=== PATIENT | male | born 1940 | race Caucasian/White ===

== ENCOUNTER 2018-05-08 13:31 | Inpatient (IN) | payer MEDICARE, OTHER ==
--- NOTE | 2018-05-08 14:13 | ED PDOC ---
HPI: Male Pain Time Seen by Provider: 05/08/18 14:12 Chief Complaint (Nursing): Male Genitourinary Chief Complaint (Provider): dysuria/chills History Per: Patient (77 y/o male h/o DM here with dysuria/urinary frequency/incontinence this week associated with chills. States he was seen by urology last week without improvement. No vomiting/diarrhea.) Past Medical History Reviewed: Historical Data, Nursing Documentation, Vital Signs Vital Signs: Last Vital Signs Temp 99.8 F H 05/08/18 13:48 Pulse 103 H 05/08/18 13:48 Resp 20 05/08/18 13:48 BP 173/75 H 05/08/18 13:48 Pulse Ox 97 05/08/18 13:48 - Medical History PMH: HTN - Family History Family History: States: No Known Family Hx - Home Medications Home Medications: Ambulatory Orders Medication Instructions Recorded Glimepiride [amaRYL] 2 mg PO DAILY 05/08/18 Nebivolol [Bystolic] 5 mg PO DAILY 05/08/18 Rosuvastatin Calcium [Crestor] 5 mg PO DAILY 05/08/18 Sitagliptin Phos/Metformin HCl 1 mg PO DAILY 05/08/18 [Janumet 50-500 mg Tablet] Tamsulosin [Flomax] 0.4 mg PO DAILY 05/08/18 - Allergies Allergies/Adverse Reactions: Allergies Allergy/AdvReac Type Severity Reaction Status Date / Time No Known Allergies Allergy Verified 05/08/18 13:46 Review of Systems ROS Statement: Except As Marked, All Systems Reviewed And Found Negative Physical Exam - Reviewed Nursing Documentation Reviewed: Yes Vital Signs Reviewed: Yes - Physical Exam Appears: Positive for: Well, Non-toxic, No Acute Distress Head Exam: Positive for: ATRAUMATIC, NORMAL INSPECTION, NORMOCEPHALIC Skin: Positive for: Normal Color, Warm, DRY Eye Exam: Positive for: EOMI, Normal appearance, PERRL ENT: Positive for: Normal ENT Inspection Neck: Positive for: Normal, Painless ROM Cardiovascular/Chest: Positive for: Regular Rate, Rhythm Respiratory: Positive for: CNT, Normal Breath Sounds Gastrointestinal/Abdominal: Positive for: Normal Exam, Soft Back: Positive for: Normal Inspection Extremity: Positive for: Normal ROM Neurologic/Psych: Positive for: Alert, Oriented - Laboratory Results Result Diagrams: 05/08/18 14:48 05/08/18 15:40 - ECG O2 Sat by Pulse Oximetry: 97 - Progress ED Course And Treament: cxr: nad rocephin 1 gm iv x 1 dose NS 1 liter wide open lactate 3.8 rocephin 1 gm iv ns 2nd liter ordered. influenza a/b negative d/w Dr. Vick. Patient requests urology evaluation inpatient. repeat lactate 2.1 Disposition - Clinical Impression Clinical Impression: Urinary tract infection, Sepsis - Patient ED Disposition Is Patient to be Admitted: Yes - Disposition Disposition Time: 17:05 Condition: FAIR - Pt Status Changed To: Hospital Disposition Of: Observation
[2018-05-08 14:51] LABS: VENOUS BLOOD GAS BASE EXCESS -1.5 mmol/L (0.0-2.0); VENOUS BLOOD GAS PCO2 37 mmHg (40-60); VENOUS BLOOD GAS PO2 32 mm/Hg (30-55)
[2018-05-08 14:55] LABS: BASO # 0.1 K/uL (0.0-0.2); BASO % 0.6 % (0.0-2.0); EOS # 0.1 K/uL (0.0-0.7); EOS % 0.5 % (0.0-4.0); LYMPH # 1.8 K/uL (1.0-4.3); LYMPH % 9.7 % (20.0-40.0); MEAN CELL VOLUME 88.6 fl (80.0-94.0); MEAN CORPUSCULAR HEMOGLOBIN 29.3 pg (27.0-31.0); MEAN PLATELET VOLUME 8.7 fl (7.2-11.7); MONO # 1.4 K/uL (0.0-0.8); MONO % 7.6 % (0.0-10.0); NEUT # 15.2 K/uL (1.8-7.0); NEUT % 81.6 % (50.0-75.0); PLATELET COUNT 175 K/uL (130-400); RBC 4.45 Mil/uL (4.40-5.90); RED CELL DISTRIBUTION WIDTH 14.4 % (11.5-14.5); WHITE BLOOD COUNT 18.6 K/uL (4.8-10.8)
[2018-05-08 15:01] LABS: SQUAMOUS EPITHIAL < 1 /hpf (0-5); URINE BACTERIA OCC (<OCC); URINE BILIRUBIN NEGATIVE (NEGATIVE); URINE BLOOD MODERATE (NEGATIVE); URINE CLARITY SLIGHTY-CLOUDY (Clear); URINE COLOR YELLOW (YELLOW); URINE GLUCOSE (UA) NEG (Normal); URINE LEUKOCYTE ESTERASE MOD Leu/uL (Negative); URINE PROTEIN NEGATIVE (NEGATIVE); URINE UROBILINOGEN 0.2-1.0 mg/dL (0.2-1.0)
[2018-05-08] MEDS ORDERED: Sodium Chloride 0.9% 1,000 ML IV STA ×2 (15:07→16:23)
[2018-05-08] MEDS ORDERED: cefTRIAXone (Rocephin) 1 gm Inj IVPB ONE (15:26)
[2018-05-08] MEDS ORDERED: cefTRIAXone (Rocephin) 1 gm Inj ONE (15:38)
--- NOTE | 2018-05-08 16:09 | RAD ---
Date of service: 05/08/2018 HISTORY: Routine. COMPARISON: No prior. FINDINGS: LUNGS: Poor inspiration with low lung volumes, crowded bronchovascular markings and minor bibasilar atelectasis. PLEURA: No significant pleural effusion identified, no pneumothorax apparent. CARDIOVASCULAR: . Aortic atherosclerotic calcification present. Normal cardiac size. No pulmonary vascular congestion. OSSEOUS STRUCTURES: Mild multilevel degenerative spondylosis of the thoracic spine. VISUALIZED UPPER ABDOMEN: Normal. OTHER FINDINGS: None. IMPRESSION: Poor inspiration with low lung volumes, crowded bronchovascular markings and minor bibasilar atelectasis.
[2018-05-08 16:16] LABS: ALB/GLOB RATIO 1.2 (1.0-2.1); ALBUMIN 4.1 g/dL (3.5-5.0); ALT/SGPT 16 U/L (21-72); AST/SGOT 19 U/L (17-59); BLOOD UREA NITROGEN 19 mg/dl (9-20); CALCIUM 9.3 mg/dL (8.4-10.2); GFR NON-AFRICAN AMERICAN > 60
[2018-05-08 16:54] LABS: LYMPHOCYTE 14 % (20-50); MONOCYTE 4 % (0-10); NEUTROPHIL 82 % (42-75); TOTAL CELLS COUNTED 100
[2018-05-08 16:55] LABS: ANISOCYTOSIS SLIGHT; OVALOCYTES SLIGHT; PLATELET ESTIMATE NORMAL (NORMAL); POIKILOCYTOSIS SLIGHT
--- NOTE | 2018-05-08 17:30 | CP.PCM.HP ---
<Helena Sheppard - Last Filed: 05/08/18 19:09> History of Present Illness - History of Present Illness History of Present Illness: CC: chill and burning with urination HPI: 77 YO Male with PMHx of HTN, HLD, NIDDM, and BPH presents to [facility] ED for pain with urination and chills. Pt states that for the past two months pt has had burning pain with urination, intense, and it has worsened over time. For the past 24 hrs he has had urinary frequency, urination every 2hrs last night and chills throughout the night and day. Pt was seen by his MD a few weeks ago was given a new medication which did not help his symptoms (Flomax). Denies fevers, flank pain, n/v/d/c. PMD: Qamar Dobson MD PMHx: HTN, HLD, NIDDM, and BPH SurgHx: Denies FHx: hx of Alzehimers in mother and liver problem in father (both passes away), HTN in family SHx: denies ETOH, smoking and illicit drug use Allergies: NKDA Meds: see med list Present on Admission - Present on Admission Any Indicators Present on Admission: No Review of Systems - Constitutional Constitutional: Chills. absent: Fever, Night Sweats - Cardiovascular Cardiovascular: absent: Chest Pain, Dyspnea, Palpitations - Respiratory Respiratory: absent: Cough, Dyspnea - Gastrointestinal Gastrointestinal: absent: Abdominal Pain, Nausea, Vomiting - Genitourinary Genitourinary: Dysuria, Urinary Frequency Past Patient History - Past Social History Alcohol: None Drugs: Denies Home Situation {Lives}: With Family - CARDIAC Hx Hypertension: Yes - ENDOCRINE/METABOLIC Hx Diabetes Mellitus Type 2: Yes - GENITOURINARY/GYNECOLOGICAL Hx Prostate Problems: Yes - PSYCHIATRIC Hx Substance Use: No Meds Allergies/Adverse Reactions: Allergies Allergy/AdvReac Type Severity Reaction Status Date / Time No Known Allergies Allergy Verified 05/08/18 13:46 Physical Exam - Constitutional Appears: No Acute Distress - Head Exam Head Exam: NORMAL INSPECTION - Eye Exam Eye Exam: EOMI, Normal appearance - ENT Exam ENT Exam: Mucous Membranes Moist - Respiratory Exam Respiratory Exam: Clear to Auscultation Bilateral, NORMAL BREATHING PATTERN. absent: Wheezes - Cardiovascular Exam Cardiovascular Exam: REGULAR RHYTHM, +S1, +S2 - GI/Abdominal Exam GI & Abdominal Exam: Normal Bowel Sounds, Soft. absent: Distended, Guarding, Tenderness - Extremities Exam Extremities exam: Positive for: normal inspection. Negative for: calf tenderness, pedal edema - Back Exam Back exam: NORMAL INSPECTION. absent: CVA tenderness (L), CVA tenderness (R) - Neurological Exam Neurological exam: Alert, Oriented x3 - Psychiatric Exam Psychiatric exam: Normal Mood - Skin Skin Exam: Normal Color Results - Vital Signs Recent Vital Signs: Last Vital Signs Temp 99.8 F H 05/08/18 13:48 Pulse 103 H 05/08/18 13:48 Resp 20 05/08/18 13:48 BP 173/75 H 05/08/18 13:48 Pulse Ox 97 05/08/18 17:02 - Labs Result Diagrams: 05/08/18 14:48 05/08/18 15:40 Labs: Laboratory Results - last 24 hr 05/08/18 05/08/18 05/08/18 14:27 14:48 15:30 WBC 18.6 H RBC 4.45 Hgb 13.0 Hct 39.5 MCV 88.6 MCH 29.3 MCHC 33.0 RDW 14.4 Plt Count 175 MPV 8.7 Neut % (Auto) 81.6 H Lymph % (Auto) 9.7 L [place] % (Auto) 7.6 Eos % (Auto) 0.5 Baso % (Auto) 0.6 Neut # (Auto) 15.2 H Lymph # (Auto) 1.8 [place] # (Auto) 1.4 H Eos # (Auto) 0.1 Baso # (Auto) 0.1 Neutrophils % (Manual) 82 H Lymphocytes % (Manual) 14 L Monocytes % (Manual) 4 Platelet Estimate Normal Poikilocytosis (manual Slight Anisocytosis (manual) Slight Ovalocytes Slight pO2 32 VBG pH 7.40 VBG pCO2 37 L VBG HCO3 22.9 VBG Total CO2 24.0 VBG O2 Sat (Calc) 68.2 H VBG Base Excess -1.5 L VBG Potassium 4.0 Sodium 136.0 Chloride 103.0 Glucose 172 H Lactate 3.8 H FiO2 24.0 Potassium Carbon Dioxide Anion Gap BUN Creatinine Est GFR ( Amer) Est GFR (Non-Af Amer) Random Glucose Calcium Total Bilirubin AST ALT Alkaline Phosphatase Total Protein Albumin Globulin Albumin/Globulin Ratio Venous Blood Potassium 4.0 Urine Color Yellow Urine Clarity Slighty-cloudy Urine pH 5.0 Ur Specific [place] 1.017 Urine Protein Negative Urine Glucose (UA) Neg Urine Ketones Negative Urine Blood Moderate Urine Nitrate Negative Urine Bilirubin Negative Urine Urobilinogen 0.2-1.0 Ur Leukocyte Esterase Mod Urine RBC (Auto) 13 H Urine Microscopic WBC 39 H Ur Squamous Epith Cells < 1 Urine Bacteria Occ H Influenza Typ A,B (EIA) 05/08/18 05/08/18 15:40 16:38 WBC RBC Hgb Hct MCV MCH MCHC RDW Plt Count MPV Neut % (Auto) Lymph % (Auto) [place] % (Auto) Eos % (Auto) Baso % (Auto) Neut # (Auto) Lymph # (Auto) [place] # (Auto) Eos # (Auto) Baso # (Auto) Neutrophils % (Manual) Lymphocytes % (Manual) Monocytes % (Manual) Platelet Estimate Poikilocytosis (manual Anisocytosis (manual) Ovalocytes pO2 VBG pH VBG pCO2 VBG HCO3 VBG Total CO2 VBG O2 Sat (Calc) VBG Base Excess VBG Potassium Sodium 139 Chloride 104 Glucose Lactate FiO2 Potassium 4.1 Carbon Dioxide 23 Anion Gap 16 BUN 19 Creatinine 1.0 Est GFR ( Amer) > 60 Est GFR (Non-Af Amer) > 60 Random Glucose 148 H Calcium 9.3 Total Bilirubin 0.9 AST 19 ALT 16 L Alkaline Phosphatase 58 Total Protein 7.4 Albumin 4.1 Globulin 3.3 Albumin/Globulin Ratio 1.2 Venous Blood Potassium Urine Color Urine Clarity Urine pH Ur Specific [place] Urine Protein Urine Glucose (UA) Urine Ketones Urine Blood Urine Nitrate Urine Bilirubin Urine Urobilinogen Ur Leukocyte Esterase Urine RBC (Auto) Urine Microscopic WBC Ur Squamous Epith Cells Urine Bacteria Influenza Typ A,B (EIA) Negative for flu a/b Assessment & Plan - Assessment and Plan (Free Text) Assessment: Assessment/Plan: 77 YO Male with PMHx of HTN, HLD, NIDDM, and BPH is admitted for UTI and sepsis. Sepsis -tachycardia, low grade fever, leukocytosis with UTI likely source -Leukocytosis with neutrophilia -lactatic acidosis, improving initially 3.8--> 2.1 -CXR neg for pneumonia, atelectasis noted -Ucx, and bcx pending -IV abx, c/w rocephin -s/o 2L in ED -c/w IV fluids -Tylenol for fever prn UTI -leukocytosis with UA + for leukes and RBC -ucx pending -c/w rocephin and IVF -Tylenol for fever prn -AZO for dysuria HTN -chronic -c/w home meds NIDDM -chronic -c/w home meds, hold metformin given lactic acidosis, c/w januvia -low dose insulin and hypoglycemia protocol BPH -chronic -c/w flomax -urology consulted, follow up recs Dvt Proplx -Lovenox SC <Anthony Vick D - Last Filed: 05/09/18 09:39> Results - Vital Signs Recent Vital Signs: Last Vital Signs Temp 98.5 F 05/09/18 08:51 Pulse 73 05/09/18 08:51 Resp 18 05/09/18 08:51 BP 123/64 05/09/18 08:51 Pulse Ox 99 05/09/18 08:51 - Labs Result Diagrams: 05/09/18 04:30 05/09/18 04:30 Labs: Laboratory Results - last 24 hr 05/08/18 05/08/18 05/08/18 14:27 14:48 15:30 WBC 18.6 H RBC 4.45 Hgb 13.0 Hct 39.5 MCV 88.6 MCH 29.3 MCHC 33.0 RDW 14.4 Plt Count 175 MPV 8.7 Neut % (Auto) 81.6 H Lymph % (Auto) 9.7 L [place] % (Auto) 7.6 Eos % (Auto) 0.5 Baso % (Auto) 0.6 Neut # (Auto) 15.2 H Lymph # (Auto) 1.8 [place] # (Auto) 1.4 H Eos # (Auto) 0.1 Baso # (Auto) 0.1 Neutrophils % (Manual) 82 H Lymphocytes % (Manual) 14 L Monocytes % (Manual) 4 Platelet Estimate Normal Poikilocytosis (manual Slight Anisocytosis (manual) Slight Ovalocytes Slight pO2 32 VBG pH 7.40 VBG pCO2 37 L VBG HCO3 22.9 VBG Total CO2 24.0 VBG O2 Sat (Calc) 68.2 H VBG Base Excess -1.5 L VBG Potassium 4.0 Sodium 136.0 Chloride 103.0 Glucose 172 H Lactate 3.8 H FiO2 24.0 Crit Value Called To Crit Value Called By Crit Value Read Back Blood Gas Notified Time Potassium Carbon Dioxide Anion Gap BUN Creatinine Est GFR ( Amer) Est GFR (Non-Af Amer) POC Glucose (mg/dL) Random Glucose Lactic Acid Calcium Total Bilirubin AST ALT Alkaline Phosphatase Total Protein Albumin Globulin Albumin/Globulin Ratio Venous Blood Potassium 4.0 Urine Color Yellow Urine Clarity Slighty-cloudy Urine pH 5.0 Ur Specific [place] 1.017 Urine Protein Negative Urine Glucose (UA) Neg Urine Ketones Negative Urine Blood Moderate Urine Nitrate Negative Urine Bilirubin Negative Urine Urobilinogen 0.2-1.0 Ur Leukocyte Esterase Mod Urine RBC (Auto) 13 H Urine Microscopic WBC 39 H Ur Squamous Epith Cells < 1 Urine Bacteria Occ H Influenza Typ A,B (EIA) 05/08/18 05/08/18 05/08/18 15:40 16:38 17:26 WBC RBC Hgb Hct MCV MCH MCHC RDW Plt Count MPV Neut % (Auto) Lymph % (Auto) [place] % (Auto) Eos % (Auto) Baso % (Auto) Neut # (Auto) Lymph # (Auto) [place] # (Auto) Eos # (Auto) Baso # (Auto) Neutrophils % (Manual) Lymphocytes % (Manual) Monocytes % (Manual) Platelet Estimate Poikilocytosis (manual Anisocytosis (manual) Ovalocytes pO2 15 L VBG pH 7.38 VBG pCO2 45 VBG HCO3 23.6 VBG Total CO2 28.0 VBG O2 Sat (Calc) 23.6 L VBG Base Excess 1.0 VBG Potassium 3.9 Sodium 139 139.0 Chloride 104 105.0 Glucose 138 H Lactate 2.1 FiO2 21.0 Crit Value Called To rahat Douglas Crit Value Called By Keith granado Crit Value Read Back Y Blood Gas Notified Time 1735 Potassium 4.1 Carbon Dioxide 23 Anion Gap 16 BUN 19 Creatinine 1.0 Est GFR ( Amer) > 60 Est GFR (Non-Af Amer) > 60 POC Glucose (mg/dL) Random Glucose 148 H Lactic Acid Calcium 9.3 Total Bilirubin 0.9 AST 19 ALT 16 L Alkaline Phosphatase 58 Total Protein 7.4 Albumin 4.1 Globulin 3.3 Albumin/Globulin Ratio 1.2 Venous Blood Potassium 3.9 Urine Color Urine Clarity Urine pH Ur Specific [place] Urine Protein Urine Glucose (UA) Urine Ketones Urine Blood Urine Nitrate Urine Bilirubin Urine Urobilinogen Ur Leukocyte Esterase Urine RBC (Auto) Urine Microscopic WBC Ur Squamous Epith Cells Urine Bacteria Influenza Typ A,B (EIA) Negative for flu a/b 05/08/18 05/08/18 05/09/18 18:42 22:36 04:30 WBC 16.2 H RBC 3.79 L Hgb 11.0 L D Hct 34.1 L MCV 89.8 MCH 29.0 MCHC 32.3 L RDW 14.0 Plt Count 152 MPV 8.8 Neut % (Auto) 74.5 Lymph % (Auto) 17.0 L [place] % (Auto) 7.6 Eos % (Auto) 0.5 Baso % (Auto) 0.4 Neut # (Auto) 12.1 H Lymph # (Auto) 2.7 [place] # (Auto) 1.2 H Eos # (Auto) 0.1 Baso # (Auto) 0.1 Neutrophils % (Manual) Lymphocytes % (Manual) Monocytes % (Manual) Platelet Estimate Poikilocytosis (manual Anisocytosis (manual) Ovalocytes pO2 VBG pH VBG pCO2 VBG HCO3 VBG Total CO2 VBG O2 Sat (Calc) VBG Base Excess VBG Potassium Sodium Chloride Glucose Lactate FiO2 Crit Value Called To Crit Value Called By Crit Value Read Back Blood Gas Notified Time Potassium Carbon Dioxide Anion Gap BUN Creatinine Est GFR ( Amer) Est GFR (Non-Af Amer) POC Glucose (mg/dL) 121 H 162 H Random Glucose Lactic Acid Calcium Total Bilirubin AST ALT Alkaline Phosphatase Total Protein Albumin Globulin Albumin/Globulin Ratio Venous Blood Potassium Urine Color Urine Clarity Urine pH Ur Specific [place] Urine Protein Urine Glucose (UA) Urine Ketones Urine Blood Urine Nitrate Urine Bilirubin Urine Urobilinogen Ur Leukocyte Esterase Urine RBC (Auto) Urine Microscopic WBC Ur Squamous Epith Cells Urine Bacteria Influenza Typ A,B (EIA) 05/09/18 05/09/18 05/09/18 04:30 04:30 05:14 WBC RBC Hgb Hct MCV MCH MCHC RDW Plt Count MPV Neut % (Auto) Lymph % (Auto) [place] % (Auto) Eos % (Auto) Baso % (Auto) Neut # (Auto) Lymph # (Auto) [place] # (Auto) Eos # (Auto) Baso # (Auto) Neutrophils % (Manual) Lymphocytes % (Manual) Monocytes % (Manual) Platelet Estimate Poikilocytosis (manual Anisocytosis (manual) Ovalocytes pO2 VBG pH VBG pCO2 VBG HCO3 VBG Total CO2 VBG O2 Sat (Calc) VBG Base Excess VBG Potassium Sodium 140 Chloride 106 Glucose Lactate FiO2 Crit Value Called To Crit Value Called By Crit Value Read Back Blood Gas Notified Time Potassium 3.5 L Carbon Dioxide 23 Anion Gap 15 BUN 15 Creatinine 0.9 Est GFR ( Amer) > 60 Est GFR (Non-Af Amer) > 60 POC Glucose (mg/dL) 159 H Random Glucose 150 H Lactic Acid 0.9 Calcium 8.2 L Total Bilirubin AST ALT Alkaline Phosphatase Total Protein Albumin Globulin Albumin/Globulin Ratio Venous Blood Potassium Urine Color Urine Clarity Urine pH Ur Specific [place] Urine Protein Urine Glucose (UA) Urine Ketones Urine Blood Urine Nitrate Urine Bilirubin Urine Urobilinogen Ur Leukocyte Esterase Urine RBC (Auto) Urine Microscopic WBC Ur Squamous Epith Cells Urine Bacteria Influenza Typ A,B (EIA) Attending/Attestation - Attestation I have personally seen and examined this patient.: Yes I have fully participated in the care of the patient.: Yes I have reviewed all pertinent clinical information: Yes Notes (Text): 05/09/18 09:38 Patient seen and examined with resident. Case discussed and agreed with assessment and plan of management
[2018-05-08 17:35] LABS: VENOUS BLOOD GAS PCO2 45 mmHg (40-60); VENOUS BLOOD GAS PO2 15 mm/Hg (30-55); VENOUS BLOOD PH 7.38 (7.32-7.43)
[2018-05-08] MEDS ORDERED: Glucagon Recombinant 1 mg Inj IM PRN (17:58)
[2018-05-08] MEDS ORDERED: Dextrose 50% SYRINGE Inj (50 ml) IV PRN (17:58)
[2018-05-08] MEDS: Insulin Regular 100 units/ml SC SCH (23:13)
[2018-05-09] MEDS: Sodium Chloride 0.9% 1,000 ML IV SCH ×2 (00:06→02:00)
[2018-05-09 06:21] LABS: BASO # 0.1 K/uL (0.0-0.2); BASO % 0.4 % (0.0-2.0); EOS # 0.1 K/uL (0.0-0.7); EOS % 0.5 % (0.0-4.0); LYMPH # 2.7 K/uL (1.0-4.3); MEAN CELL VOLUME 89.8 fl (80.0-94.0); MEAN CORPUSCULAR HGB CONC 32.3 g/dL (33.0-37.0); MEAN PLATELET VOLUME 8.8 fl (7.2-11.7); MONO # 1.2 K/uL (0.0-0.8); MONO % 7.6 % (0.0-10.0); NEUT # 12.1 K/uL (1.8-7.0); NEUT % 74.5 % (50.0-75.0); NRBC % 0.1 % (0.0-0.0); RBC 3.79 Mil/uL (4.40-5.90); WHITE BLOOD COUNT 16.2 K/uL (4.8-10.8)
[2018-05-09 06:25] LABS: BLOOD UREA NITROGEN 15 mg/dl (9-20); CALCIUM 8.2 mg/dL (8.4-10.2); GFR NON-AFRICAN AMERICAN > 60
[2018-05-09] MEDS ORDERED: Potassium Chloride 20 mEq ER Tab PO ONE (06:35)
[2018-05-09] MEDS: Insulin Regular 100 units/ml SC SCH ×4 (06:39→22:19)
[2018-05-09] MEDS ORDERED: GlipiZIDE 5 mg SR Tab PO SCH (09:00)
[2018-05-09] MEDS ORDERED: Enoxaparin 40 mg Syringe SC SCH (09:00)
[2018-05-09] MEDS: Enoxaparin 40 mg Syringe SC SCH (09:58)
[2018-05-09] MEDS: Pantoprazole 40 mg EC Tab PO SCH (09:58)
--- NOTE | 2018-05-09 10:17 | CP.PCM.PN ---
<Kg Joel - Last Filed: 05/09/18 10:29> Subjective - Date & Time of Evaluation Date of Evaluation: 05/09/18 Time of Evaluation: 08:00 - Subjective Subjective: Pt seen and examined at bedside. No acute event overnight. Pt have no complain, except he still have dysuria otherwise he feel good. Objective - Vital Signs/Intake and Output Vital Signs (last 24 hours): Temp Pulse Resp BP Pulse Ox 98.5 F 73 18 123/64 99 05/09/18 08:51 05/09/18 08:51 05/09/18 08:51 05/09/18 08:51 05/09/18 08:51 - Medications Medications: Current Medications Acetaminophen (Tylenol 325mg Tab) 650 mg PO Q6 PRN PRN Reason: Pain, Mild (1-3) Acetaminophen (Tylenol 325mg Tab) 650 mg PO Q6 PRN PRN Reason: Fever >100.4 F Last Admin: 05/09/18 00:02 Dose: 650 mg Dextrose (Dextrose 50% Inj) 0 ml IV STAT PRN; Protocol PRN Reason: Hypoglycemia Protocol Dextrose (Glutose 15) 0 gm PO ONCE PRN; Protocol PRN Reason: Hypoglycemia Protocol Docusate Sodium (Colace) 100 mg PO BID [facility] Last Admin: 05/09/18 09:58 Dose: 100 mg Enoxaparin Sodium (Lovenox) 40 mg SC DAILY [facility]; Protocol Last Admin: 05/09/18 09:58 Dose: 40 mg Glipizide (Glucotrol Xl) 5 mg PO DAILY [facility] Last Admin: 05/09/18 09:58 Dose: 5 mg Glucagon (Glucagen Diagnostic Kit) 0 mg IM STAT PRN; Protocol PRN Reason: Hypoglycemia Protocol Sodium Chloride (Sodium Chloride 0.9%) 1,000 mls @ 115 mls/hr IV .[id number] [facility] Stop: 05/09/18 10:53 Last Admin: 05/09/18 02:00 Dose: 115 mls/hr Ceftriaxone Sodium 1 gm/ (Sodium Chloride) 100 mls @ 100 mls/hr IVPB Q12 NATALIO; Protocol Insulin Human Regular (Humulin R) 0 units SC ACHS [facility]; Protocol Last Admin: 05/09/18 06:39 Dose: 1 unit Metoprolol Tartrate (Lopressor) 25 mg PO BID [facility] Last Admin: 05/09/18 09:57 Dose: 25 mg Ondansetron HCl (Zofran Inj) 4 mg IVP Q6 PRN PRN Reason: Nausea/Vomiting Pantoprazole Sodium (Protonix Ec Tab) 40 mg PO DAILY [facility] Last Admin: 05/09/18 09:58 Dose: 40 mg Phenazopyridine HCl (Pyridium) 100 mg PO TID [facility] Stop: 05/10/18 09:00 Last Admin: 05/09/18 09:57 Dose: 100 mg Sitagliptin Phosphate (Januvia) 50 mg PO DAILY [facility] Last Admin: 05/09/18 09:58 Dose: 50 mg Tamsulosin HCl (Flomax) 0.4 mg PO DAILY [facility] Last Admin: 05/09/18 09:58 Dose: 0.4 mg - Labs Labs: 05/09/18 04:30 05/09/18 04:30 - Constitutional Appears: Well, Non-toxic, No Acute Distress - Head Exam Head Exam: ATRAUMATIC, NORMAL INSPECTION, NORMOCEPHALIC - Eye Exam Eye Exam: EOMI, Normal appearance, PERRL Pupil Exam: NORMAL ACCOMODATION, PERRL - ENT Exam ENT Exam: Mucous Membranes Moist, Normal Exam - Neck Exam Neck Exam: Full ROM, Normal Inspection - Respiratory Exam Respiratory Exam: Clear to Ausculation Bilateral, NORMAL BREATHING PATTERN - Cardiovascular Exam Cardiovascular Exam: REGULAR RHYTHM, +S1, +S2 - GI/Abdominal Exam GI & Abdominal Exam: Soft, Normal Bowel Sounds. absent: Tenderness - Extremities Exam Extremities Exam: Full ROM, Normal Capillary Refill, Normal Inspection - Back Exam Back Exam: NORMAL INSPECTION - Neurological Exam Neurological Exam: Alert, Awake - Psychiatric Exam Psychiatric exam: Normal Affect, Normal Mood - Skin Skin Exam: Dry, Intact, Normal Color, Warm Assessment and Plan - Assessment and Plan (Free Text) Assessment: Assessment/Plan: 77 YO Male with PMHx of HTN, HLD, NIDDM, and BPH is admitted for UTI and sepsis. Sepsis -Improving -Last fever 101.2 (05/09/18), HR WNL, WBC trending down -Lactate initially 3.8--> 2.1 -CXR neg for pneumonia, atelectasis noted -Ucx, and bcx pending -Rocephin day 2 -continue IV fluids -Tylenol for fever prn UTI -leukocytosis with UA + for leukes and RBC -ucx pending -Continue with Rocephin -Tylenol for fever prn -AZO for dysuria HTN -chronic -c/w home meds NIDDM -chronic -c/w home meds, hold metformin until sepsis resolved. c/w Januvia -low dose insulin and hypoglycemia protocol BPH -chronic -Continue flomax -urology consulted, follow up recs Dvt Proplx -Lovenox SC <Anthony Vick D - Last Filed: 05/09/18 17:28> Objective - Vital Signs/Intake and Output Vital Signs (last 24 hours): Temp Pulse Resp BP Pulse Ox 98.2 F 68 18 136/61 95 05/09/18 16:28 05/09/18 16:28 05/09/18 16:28 05/09/18 16:28 05/09/18 16:28 Intake and Output: 05/09/18 05/09/18 06:59 18:59 Intake Total 1135 Output Total 1000 Balance 135 - Medications Medications: Current Medications Acetaminophen (Tylenol 325mg Tab) 650 mg PO Q6 PRN PRN Reason: Pain, Mild (1-3) Acetaminophen (Tylenol 325mg Tab) 650 mg PO Q6 PRN PRN Reason: Fever >100.4 F Last Admin: 05/09/18 00:02 Dose: 650 mg Dextrose (Dextrose 50% Inj) 0 ml IV STAT PRN; Protocol PRN Reason: Hypoglycemia Protocol Last Admin: 05/09/18 11:21 Dose: 50 ml Dextrose (Glutose 15) 0 gm PO ONCE PRN; Protocol PRN Reason: Hypoglycemia Protocol Docusate Sodium (Colace) 100 mg PO BID [facility] Last Admin: 05/09/18 09:58 Dose: 100 mg Enoxaparin Sodium (Lovenox) 40 mg SC DAILY [facility]; Protocol Last Admin: 05/09/18 09:58 Dose: 40 mg Glipizide (Glucotrol Xl) 5 mg PO DAILY [facility] Last Admin: 05/09/18 09:58 Dose: 5 mg Glucagon (Glucagen Diagnostic Kit) 0 mg IM STAT PRN; Protocol PRN Reason: Hypoglycemia Protocol Ceftriaxone Sodium 1 gm/ (Sodium Chloride) 100 mls @ 100 mls/hr IVPB Q12 [facility]; Protocol Last Admin: 05/09/18 12:54 Dose: 100 mls/hr Insulin Human Regular (Humulin R) 0 units SC ACHS [facility]; Protocol Last Admin: 05/09/18 11:22 Dose: Not Given Metoprolol Tartrate (Lopressor) 25 mg PO BID [facility] Last Admin: 05/09/18 09:57 Dose: 25 mg Ondansetron HCl (Zofran Inj) 4 mg IVP Q6 PRN PRN Reason: Nausea/Vomiting Pantoprazole Sodium (Protonix Ec Tab) 40 mg PO DAILY [facility] Last Admin: 05/09/18 09:58 Dose: 40 mg Phenazopyridine HCl (Pyridium) 100 mg PO TID [facility] Stop: 05/10/18 09:00 Last Admin: 05/09/18 12:56 Dose: 100 mg Sitagliptin Phosphate (Januvia) 50 mg PO DAILY [facility] Last Admin: 05/09/18 09:58 Dose: 50 mg Tamsulosin HCl (Flomax) 0.8 mg PO DAILY [facility] - Labs Labs: 05/09/18 04:30 05/09/18 04:30 Attending/Attestation - Attestation I have personally seen and examined this patient.: Yes I have fully participated in the care of the patient.: Yes I have reviewed all pertinent clinical information, including history, physical exam and plan: Yes Notes (Text): 05/09/18 17:25 Patient seen and examined with resident. Spoke with Dr Godoy who recommended to double dose of Flomax and get pelvic US in am to measure size of prostate gland. He will follow up patient in his office.
--- NOTE | 2018-05-09 11:07 | CP.PCM.CON ---
History of Present Illness - History of Present Illness History of Present Illness: UROLOGY Consult dictated advise 5to increase flomax to 2 caps daily Past Patient History - Past Medical History & Family History Past Medical History?: Yes - Past Social History Smoking Status: Never Smoked - CARDIAC Hx Cardiac Disorders: Yes Hx Hypercholesterolemia: Yes Hx Hypertension: Yes - PULMONARY Hx Respiratory Disorders: No - NEUROLOGICAL Hx Neurological Disorder: No - HEENT Hx HEENT Problems: No - RENAL Hx Chronic Kidney Disease: No - ENDOCRINE/METABOLIC Hx Endocrine Disorders: Yes Hx Diabetes Mellitus Type 2: Yes - HEMATOLOGICAL/ONCOLOGICAL Hx Blood Disorders: No Hx AIDS: No Hx Human Immunodeficiency Virus (HIV): No - INTEGUMENTARY Hx Dermatological Problems: No - MUSCULOSKELETAL/RHEUMATOLOGICAL Hx Musculoskeletal Disorders: No Hx Falls: No - GASTROINTESTINAL Hx Gastrointestinal Disorders: No - GENITOURINARY/GYNECOLOGICAL Hx Genitourinary Disorders: Yes Hx Prostate Problems: Yes - PSYCHIATRIC Hx Psychophysiologic Disorder: No Hx Substance Use: No - SURGICAL HISTORY Hx Surgeries: No - ANESTHESIA Hx Anesthesia: No Hx Anesthesia Reactions: No Hx Malignant Hyperthermia: No Meds Allergies/Adverse Reactions: Allergies Allergy/AdvReac Type Severity Reaction Status Date / Time No Known Allergies Allergy Verified 05/08/18 13:46 - Medications Medications: Current Medications Acetaminophen (Tylenol 325mg Tab) 650 mg PO Q6 PRN PRN Reason: Pain, Mild (1-3) Acetaminophen (Tylenol 325mg Tab) 650 mg PO Q6 PRN PRN Reason: Fever >100.4 F Last Admin: 05/09/18 00:02 Dose: 650 mg Dextrose (Dextrose 50% Inj) 0 ml IV STAT PRN; Protocol PRN Reason: Hypoglycemia Protocol Dextrose (Glutose 15) 0 gm PO ONCE PRN; Protocol PRN Reason: Hypoglycemia Protocol Docusate Sodium (Colace) 100 mg PO BID [facility] Last Admin: 05/09/18 09:58 Dose: 100 mg Enoxaparin Sodium (Lovenox) 40 mg SC DAILY [facility]; Protocol Last Admin: 05/09/18 09:58 Dose: 40 mg Glipizide (Glucotrol Xl) 5 mg PO DAILY [facility] Last Admin: 05/09/18 09:58 Dose: 5 mg Glucagon (Glucagen Diagnostic Kit) 0 mg IM STAT PRN; Protocol PRN Reason: Hypoglycemia Protocol Ceftriaxone Sodium 1 gm/ (Sodium Chloride) 100 mls @ 100 mls/hr IVPB Q12 [facility]; Protocol Insulin Human Regular (Humulin R) 0 units SC ACHS [facility]; Protocol Last Admin: 05/09/18 06:39 Dose: 1 unit Metoprolol Tartrate (Lopressor) 25 mg PO BID [facility] Last Admin: 05/09/18 09:57 Dose: 25 mg Ondansetron HCl (Zofran Inj) 4 mg IVP Q6 PRN PRN Reason: Nausea/Vomiting Pantoprazole Sodium (Protonix Ec Tab) 40 mg PO DAILY [facility] Last Admin: 05/09/18 09:58 Dose: 40 mg Phenazopyridine HCl (Pyridium) 100 mg PO TID [facility] Stop: 05/10/18 09:00 Last Admin: 05/09/18 09:57 Dose: 100 mg Sitagliptin Phosphate (Januvia) 50 mg PO DAILY [facility] Last Admin: 05/09/18 09:58 Dose: 50 mg Tamsulosin HCl (Flomax) 0.4 mg PO DAILY [facility] Last Admin: 05/09/18 09:58 Dose: 0.4 mg Results - Vital Signs Recent Vital Signs: Last Vital Signs Temp 98.5 F 05/09/18 08:51 Pulse 73 05/09/18 08:51 Resp 18 05/09/18 08:51 BP 123/64 05/09/18 08:51 Pulse Ox 99 05/09/18 08:51 - Labs Result Diagrams: 05/09/18 04:30 05/09/18 04:30 Labs: Laboratory Results - last 24 hr 05/08/18 05/08/18 05/08/18 14:27 14:48 15:30 WBC 18.6 H RBC 4.45 Hgb 13.0 Hct 39.5 MCV 88.6 MCH 29.3 MCHC 33.0 RDW 14.4 Plt Count 175 MPV 8.7 Neut % (Auto) 81.6 H Lymph % (Auto) 9.7 L [place] % (Auto) 7.6 Eos % (Auto) 0.5 Baso % (Auto) 0.6 Neut # (Auto) 15.2 H Lymph # (Auto) 1.8 [place] # (Auto) 1.4 H Eos # (Auto) 0.1 Baso # (Auto) 0.1 Neutrophils % (Manual) 82 H Lymphocytes % (Manual) 14 L Monocytes % (Manual) 4 Platelet Estimate Normal Poikilocytosis (manual Slight Anisocytosis (manual) Slight Ovalocytes Slight pO2 32 VBG pH 7.40 VBG pCO2 37 L VBG HCO3 22.9 VBG Total CO2 24.0 VBG O2 Sat (Calc) 68.2 H VBG Base Excess -1.5 L VBG Potassium 4.0 Sodium 136.0 Chloride 103.0 Glucose 172 H Lactate 3.8 H FiO2 24.0 Crit Value Called To Crit Value Called By Crit Value Read Back Blood Gas Notified Time Potassium Carbon Dioxide Anion Gap BUN Creatinine Est GFR ( Amer) Est GFR (Non-Af Amer) POC Glucose (mg/dL) Random Glucose Lactic Acid Calcium Total Bilirubin AST ALT Alkaline Phosphatase Total Protein Albumin Globulin Albumin/Globulin Ratio Venous Blood Potassium 4.0 Urine Color Yellow Urine Clarity Slighty-cloudy Urine pH 5.0 Ur Specific [place] 1.017 Urine Protein Negative Urine Glucose (UA) Neg Urine Ketones Negative Urine Blood Moderate Urine Nitrate Negative Urine Bilirubin Negative Urine Urobilinogen 0.2-1.0 Ur Leukocyte Esterase Mod Urine RBC (Auto) 13 H Urine Microscopic WBC 39 H Ur Squamous Epith Cells < 1 Urine Bacteria Occ H Influenza Typ A,B (EIA) 05/08/18 05/08/18 05/08/18 15:40 16:38 17:26 WBC RBC Hgb Hct MCV MCH MCHC RDW Plt Count MPV Neut % (Auto) Lymph % (Auto) [place] % (Auto) Eos % (Auto) Baso % (Auto) Neut # (Auto) Lymph # (Auto) [place] # (Auto) Eos # (Auto) Baso # (Auto) Neutrophils % (Manual) Lymphocytes % (Manual) Monocytes % (Manual) Platelet Estimate Poikilocytosis (manual Anisocytosis (manual) Ovalocytes pO2 15 L VBG pH 7.38 VBG pCO2 45 VBG HCO3 23.6 VBG Total CO2 28.0 VBG O2 Sat (Calc) 23.6 L VBG Base Excess 1.0 VBG Potassium 3.9 Sodium 139 139.0 Chloride 104 105.0 Glucose 138 H Lactate 2.1 FiO2 21.0 Crit Value Called To rahat Douglas Crit Value Called By Keith granado Crit Value Read Back Y Blood Gas Notified Time 1735 Potassium 4.1 Carbon Dioxide 23 Anion Gap 16 BUN 19 Creatinine 1.0 Est GFR ( Amer) > 60 Est GFR (Non-Af Amer) > 60 POC Glucose (mg/dL) Random Glucose 148 H Lactic Acid Calcium 9.3 Total Bilirubin 0.9 AST 19 ALT 16 L Alkaline Phosphatase 58 Total Protein 7.4 Albumin 4.1 Globulin 3.3 Albumin/Globulin Ratio 1.2 Venous Blood Potassium 3.9 Urine Color Urine Clarity Urine pH Ur Specific [place] Urine Protein Urine Glucose (UA) Urine Ketones Urine Blood Urine Nitrate Urine Bilirubin Urine Urobilinogen Ur Leukocyte Esterase Urine RBC (Auto) Urine Microscopic WBC Ur Squamous Epith Cells Urine Bacteria Influenza Typ A,B (EIA) Negative for flu a/b 05/08/18 05/08/18 05/09/18 18:42 22:36 04:30 WBC 16.2 H RBC 3.79 L Hgb 11.0 L D Hct 34.1 L MCV 89.8 MCH 29.0 MCHC 32.3 L RDW 14.0 Plt Count 152 MPV 8.8 Neut % (Auto) 74.5 Lymph % (Auto) 17.0 L [place] % (Auto) 7.6 Eos % (Auto) 0.5 Baso % (Auto) 0.4 Neut # (Auto) 12.1 H Lymph # (Auto) 2.7 [place] # (Auto) 1.2 H Eos # (Auto) 0.1 Baso # (Auto) 0.1 Neutrophils % (Manual) Lymphocytes % (Manual) Monocytes % (Manual) Platelet Estimate Poikilocytosis (manual Anisocytosis (manual) Ovalocytes pO2 VBG pH VBG pCO2 VBG HCO3 VBG Total CO2 VBG O2 Sat (Calc) VBG Base Excess VBG Potassium Sodium Chloride Glucose Lactate FiO2 Crit Value Called To Crit Value Called By Crit Value Read Back Blood Gas Notified Time Potassium Carbon Dioxide Anion Gap BUN Creatinine Est GFR ( Amer) Est GFR (Non-Af Amer) POC Glucose (mg/dL) 121 H 162 H Random Glucose Lactic Acid Calcium Total Bilirubin AST ALT Alkaline Phosphatase Total Protein Albumin Globulin Albumin/Globulin Ratio Venous Blood Potassium Urine Color Urine Clarity Urine pH Ur Specific [place] Urine Protein Urine Glucose (UA) Urine Ketones Urine Blood Urine Nitrate Urine Bilirubin Urine Urobilinogen Ur Leukocyte Esterase Urine RBC (Auto) Urine Microscopic WBC Ur Squamous Epith Cells Urine Bacteria Influenza Typ A,B (EIA) 05/09/18 05/09/18 05/09/18 04:30 04:30 05:14 WBC RBC Hgb Hct MCV MCH MCHC RDW Plt Count MPV Neut % (Auto) Lymph % (Auto) [place] % (Auto) Eos % (Auto) Baso % (Auto) Neut # (Auto) Lymph # (Auto) [place] # (Auto) Eos # (Auto) Baso # (Auto) Neutrophils % (Manual) Lymphocytes % (Manual) Monocytes % (Manual) Platelet Estimate Poikilocytosis (manual Anisocytosis (manual) Ovalocytes pO2 VBG pH VBG pCO2 VBG HCO3 VBG Total CO2 VBG O2 Sat (Calc) VBG Base Excess VBG Potassium Sodium 140 Chloride 106 Glucose Lactate FiO2 Crit Value Called To Crit Value Called By Crit Value Read Back Blood Gas Notified Time Potassium 3.5 L Carbon Dioxide 23 Anion Gap 15 BUN 15 Creatinine 0.9 Est GFR ( Amer) > 60 Est GFR (Non-Af Amer) > 60 POC Glucose (mg/dL) 159 H Random Glucose 150 H Lactic Acid 0.9 Calcium 8.2 L Total Bilirubin AST ALT Alkaline Phosphatase Total Protein Albumin Globulin Albumin/Globulin Ratio Venous Blood Potassium Urine Color Urine Clarity Urine pH Ur Specific [place] Urine Protein Urine Glucose (UA) Urine Ketones Urine Blood Urine Nitrate Urine Bilirubin Urine Urobilinogen Ur Leukocyte Esterase Urine RBC (Auto) Urine Microscopic WBC Ur Squamous Epith Cells Urine Bacteria Influenza Typ A,B (EIA)
--- NOTE | 2018-05-09 18:53 | CON ---
DATE: 05/09/2018 HISTORY OF PRESENT ILLNESS: This is a gentleman, 77-year-old, known to have a history of symptomatic prostatism, was complaining of several days of onset of significant dysuria and feeling chills, so the patient came into the hospital on 05/08/2018, which was yesterday. Initial evaluation showed a white count of 18,000. BUN and creatinine were 15 and 0.9. His sugar is little bit on high side of 121. Urinalysis shows presence of 3+ microscopic white blood cells and +1 rbc's, and the urine itself was cloudy. The patient states that over the 3 months of taking the Flomax once a day, he had not seen significant improvement of his urinary flow or the frequency and nocturia, but he is not in any urinary retention 01:31. PHYSICAL EXAMINATION: Today, did a rectal exam, prostate feels between 25 and 30 g in size, do not feel any nodularity, no acute pain on rectal exam. IMPRESSION AND PLAN: My impression is symptomatic prostatism compounded by urinary tract infection. The patient currently is on IV antibiotics. I do not see urine culture yet posted, but would be waiting for that result hopefully done in the ER when he came in. For symptomatic relief, I would probably increase the dose of Flomax to 2 capsules daily and monitor improvement as the case warrants. Odin Godoy MD
[2018-05-10 05:41] LABS: BASO # 0.1 K/uL (0.0-0.2); BASO % 0.7 % (0.0-2.0); EOS # 0.3 K/uL (0.0-0.7); EOS % 2.1 % (0.0-4.0); HEMOGLOBIN 11.8 g/dL (12.0-18.0); LYMPH # 2.6 K/uL (1.0-4.3); LYMPH % 21.3 % (20.0-40.0); MEAN CELL VOLUME 87.3 fl (80.0-94.0); MEAN CORPUSCULAR HEMOGLOBIN 29.2 pg (27.0-31.0); MEAN CORPUSCULAR HGB CONC 33.5 g/dL (33.0-37.0); MONO # 0.7 K/uL (0.0-0.8); MONO % 5.4 % (0.0-10.0); NEUT # 8.6 K/uL (1.8-7.0); NEUT % 70.5 % (50.0-75.0); RBC 4.03 Mil/uL (4.40-5.90); RED CELL DISTRIBUTION WIDTH 14.1 % (11.5-14.5); WHITE BLOOD COUNT 12.1 K/uL (4.8-10.8)
[2018-05-10 05:55] LABS: BLOOD UREA NITROGEN 14 mg/dl (9-20); CALCIUM 8.4 mg/dL (8.4-10.2); GFR NON-AFRICAN AMERICAN > 60
[2018-05-10] MEDS: Insulin Regular 100 units/ml SC SCH ×4 (07:55→21:48)
[2018-05-10] MEDS: Pantoprazole 40 mg EC Tab PO SCH (08:48)
[2018-05-10] MEDS: Enoxaparin 40 mg Syringe SC SCH (08:48)
--- NOTE | 2018-05-10 09:46 | CP.PCM.PN ---
<Kg Joel - Last Filed: 05/10/18 10:41> Subjective - Date & Time of Evaluation Date of Evaluation: 05/10/18 Time of Evaluation: 10:02 - Subjective Subjective: Pt seen and examined at bedside today. No acute event overnight. Pt slept well, he state they told him he had fever, but he did not feel any chills. Pt state dysuria have improved, he is able to urinate with no difficulty. Otherwise he have no other complain. Objective - Vital Signs/Intake and Output Vital Signs (last 24 hours): Temp Pulse Resp BP Pulse Ox 98.3 F 61 18 146/65 98 05/10/18 07:58 05/10/18 09:00 05/10/18 07:58 05/10/18 07:58 05/10/18 07:58 - Medications Medications: Current Medications Acetaminophen (Tylenol 325mg Tab) 650 mg PO Q6 PRN PRN Reason: Pain, Mild (1-3) Acetaminophen (Tylenol 325mg Tab) 650 mg PO Q6 PRN PRN Reason: Fever >100.4 F Last Admin: 05/10/18 00:17 Dose: 650 mg Dextrose (Dextrose 50% Inj) 0 ml IV STAT PRN; Protocol PRN Reason: Hypoglycemia Protocol Last Admin: 05/09/18 11:21 Dose: 50 ml Dextrose (Glutose 15) 0 gm PO ONCE PRN; Protocol PRN Reason: Hypoglycemia Protocol Docusate Sodium (Colace) 100 mg PO BID [facility] Last Admin: 05/10/18 08:44 Dose: 100 mg Enoxaparin Sodium (Lovenox) 40 mg SC DAILY [facility]; Protocol Last Admin: 05/10/18 08:48 Dose: 40 mg Finasteride (Proscar) 5 mg PO DAILY [facility] Glipizide (Glucotrol Xl) 5 mg PO DAILY [facility] Last Admin: 05/09/18 09:58 Dose: 5 mg Glucagon (Glucagen Diagnostic Kit) 0 mg IM STAT PRN; Protocol PRN Reason: Hypoglycemia Protocol Ceftriaxone Sodium 1 gm/ (Sodium Chloride) 100 mls @ 100 mls/hr IVPB Q12 [facility]; Protocol Last Admin: 05/10/18 08:45 Dose: 100 mls/hr Insulin Human Regular (Humulin R) 0 units SC ACHS [facility]; Protocol Last Admin: 05/10/18 07:55 Dose: Not Given Metoprolol Tartrate (Lopressor) 25 mg PO BID [facility] Last Admin: 05/10/18 08:44 Dose: 25 mg Ondansetron HCl (Zofran Inj) 4 mg IVP Q6 PRN PRN Reason: Nausea/Vomiting Pantoprazole Sodium (Protonix Ec Tab) 40 mg PO DAILY [facility] Last Admin: 05/10/18 08:48 Dose: 40 mg Sitagliptin Phosphate (Januvia) 50 mg PO DAILY [facility] Last Admin: 05/10/18 08:44 Dose: 50 mg Tamsulosin HCl (Flomax) 0.8 mg PO DAILY [facility] Last Admin: 05/10/18 08:44 Dose: 0.8 mg - Labs Labs: 05/10/18 04:25 05/10/18 04:25 - Constitutional Appears: No Acute Distress - Head Exam Head Exam: ATRAUMATIC, NORMAL INSPECTION, NORMOCEPHALIC - Eye Exam Eye Exam: EOMI, Normal appearance, PERRL Pupil Exam: PERRL - ENT Exam ENT Exam: Mucous Membranes Moist, Normal Exam - Neck Exam Neck Exam: Full ROM - Respiratory Exam Respiratory Exam: Clear to Ausculation Bilateral, NORMAL BREATHING PATTERN - Cardiovascular Exam Cardiovascular Exam: REGULAR RHYTHM, +S1, +S2 - GI/Abdominal Exam GI & Abdominal Exam: Soft, Normal Bowel Sounds. absent: Tenderness - Extremities Exam Extremities Exam: Full ROM, Normal Capillary Refill, Normal Inspection - Back Exam Back Exam: NORMAL INSPECTION - Neurological Exam Neurological Exam: Alert, Awake, Oriented x3 - Psychiatric Exam Psychiatric exam: Normal Affect, Normal Mood - Skin Skin Exam: Dry, Intact, Normal Color, Warm Assessment and Plan - Assessment and Plan (Free Text) Assessment: Assessment/Plan: 77 YO Male with PMHx of HTN, HLD, NIDDM, and BPH is admitted for UTI and sepsis. Sepsis -spiked fever 101.1 at (05/10/18) at 1am -WBC trending down 16.2->12.1 -Lactate initially 3.8--> 2.1 -CXR neg for pneumonia, atelectasis noted -Ucx + for Proteus Mirabilis -bcx pending (prelim negative) -continue Rocephin day 3 -Tylenol for fever prn UTI -leukocytosis with UA + for leukes and RBC -ucx Proteus Mirabilis -Continue with Rocephin -Tylenol for fever prn -AZO for dysuria HTN -chronic -c/w home meds NIDDM -chronic -c/w home meds, hold metformin until sepsis resolved. c/w Januvia -low dose insulin and hypoglycemia protocol BPH -chronic -Increase flomax to 0.8 daily -urology consulted, follow up recs Dvt Proplx Lovenox 40 sc <Ludmila Dunne - Last Filed: 05/10/18 17:56> Objective - Vital Signs/Intake and Output Vital Signs (last 24 hours): Temp Pulse Resp BP Pulse Ox 99.2 F 76 18 147/64 98 05/10/18 16:30 05/10/18 16:30 05/10/18 16:30 05/10/18 16:30 05/10/18 16:30 - Medications Medications: Current Medications Acetaminophen (Tylenol 325mg Tab) 650 mg PO Q6 PRN PRN Reason: Pain, Mild (1-3) Acetaminophen (Tylenol 325mg Tab) 650 mg PO Q6 PRN PRN Reason: Fever >100.4 F Last Admin: 05/10/18 00:17 Dose: 650 mg Dextrose (Dextrose 50% Inj) 0 ml IV STAT PRN; Protocol PRN Reason: Hypoglycemia Protocol Last Admin: 05/09/18 11:21 Dose: 50 ml Dextrose (Glutose 15) 0 gm PO ONCE PRN; Protocol PRN Reason: Hypoglycemia Protocol Docusate Sodium (Colace) 100 mg PO BID [facility] Last Admin: 05/10/18 16:31 Dose: 100 mg Enoxaparin Sodium (Lovenox) 40 mg SC DAILY [facility]; Protocol Last Admin: 05/10/18 08:48 Dose: 40 mg Finasteride (Proscar) 5 mg PO DAILY [facility] Last Admin: 05/10/18 09:58 Dose: 5 mg Glipizide (Glucotrol Xl) 5 mg PO DAILY [facility] Last Admin: 05/09/18 09:58 Dose: 5 mg Glucagon (Glucagen Diagnostic Kit) 0 mg IM STAT PRN; Protocol PRN Reason: Hypoglycemia Protocol Ceftriaxone Sodium 1 gm/ (Sodium Chloride) 100 mls @ 100 mls/hr IVPB Q12 [facility]; Protocol Last Admin: 05/10/18 08:45 Dose: 100 mls/hr Insulin Human Regular (Humulin R) 0 units SC ACHS [facility]; Protocol Last Admin: 05/10/18 16:32 Dose: 1 unit Metoprolol Tartrate (Lopressor) 25 mg PO BID [facility] Last Admin: 05/10/18 16:31 Dose: 25 mg Ondansetron HCl (Zofran Inj) 4 mg IVP Q6 PRN PRN Reason: Nausea/Vomiting Pantoprazole Sodium (Protonix Ec Tab) 40 mg PO DAILY [facility] Last Admin: 05/10/18 08:48 Dose: 40 mg Sitagliptin Phosphate (Januvia) 50 mg PO DAILY [facility] Last Admin: 05/10/18 08:44 Dose: 50 mg Tamsulosin HCl (Flomax) 0.8 mg PO DAILY [facility] - Labs Labs: 05/10/18 04:25 05/10/18 04:25 Attending/Attestation - Attestation I have personally seen and examined this patient.: Yes I have fully participated in the care of the patient.: Yes I have reviewed all pertinent clinical information, including history, physical exam and plan: Yes Notes (Text): Sepsis sec to UTI - Pt was still febrile last night, will cont to monitor in the hospital and continue IV Ceftriaxone
--- NOTE | 2018-05-10 11:17 | US ---
Date of service: 05/09/2018 PROCEDURE: Urinary bladder ultrasound HISTORY: to measure prostate enlargement COMPARISON: None TECHNIQUE: Standard protocol for this study/examination. FINDINGS: Urinary bladder assessment: Prevoid volume: 479.7 ml Postvoid residual: 358.1 ml Intrinsic, mural, perivesical abnormalities: None Ureteral jets: Visible bilaterally. Transabdominal prostate volume 27.5 mL. IMPRESSION: Normal capacitance bladder, large postvoid residual. No focal or diffuse bladder wall abnormalities detected.
[2018-05-10] MEDS ORDERED: Potassium Chloride 20 mEq ER Tab PO ONE (11:30)
[2018-05-11 05:48] LABS: HEMOGLOBIN 11.8 g/dL (12.0-18.0); MEAN CELL VOLUME 87.9 fl (80.0-94.0); MEAN CORPUSCULAR HEMOGLOBIN 28.9 pg (27.0-31.0); MEAN CORPUSCULAR HGB CONC 32.9 g/dL (33.0-37.0); RBC 4.09 Mil/uL (4.40-5.90); RED CELL DISTRIBUTION WIDTH 13.9 % (11.5-14.5); WHITE BLOOD COUNT 7.6 K/uL (4.8-10.8)
[2018-05-11 06:09] LABS: BLOOD UREA NITROGEN 16 mg/dl (9-20); CALCIUM 8.5 mg/dL (8.4-10.2); GFR NON-AFRICAN AMERICAN > 60
[2018-05-11] MEDS: Insulin Regular 100 units/ml SC SCH ×3 (08:00→17:24)
[2018-05-11] MEDS: Pantoprazole 40 mg EC Tab PO SCH (09:01)
[2018-05-11] MEDS: Enoxaparin 40 mg Syringe SC SCH (09:02)
[2018-05-11] MEDS ORDERED: Meropenem 1 GM in Sodium Chloride 0.9% 100 ML IVPB SCH (11:15)
--- NOTE | 2018-05-11 11:16 | CP.PCM.PN ---
Subjective - Date & Time of Evaluation Date of Evaluation: 05/11/18 Time of Evaluation: 07:40 - Subjective Subjective: Pt is seen and examined at bedside. No acute event overnight except for a spiked of fever 100.8 at 21:46 05/10/18. Pt have no complain, he state that he still have burning sensation upon voiding, otherwise he denies nausea, vomiting, sob, cough, chest pain, abd pain, diarrhea, constipation or any other symptoms. * Consulted Dr Gasca due to Unresolved fever, Dr Gasca recommended to start Meropenem Objective - Vital Signs/Intake and Output Vital Signs (last 24 hours): Temp Pulse Resp BP Pulse Ox 98.1 F 67 20 161/74 H 98 05/11/18 08:04 05/11/18 08:04 05/11/18 08:04 05/11/18 08:04 05/11/18 08:04 - Medications Medications: Current Medications Acetaminophen (Tylenol 325mg Tab) 650 mg PO Q6 PRN PRN Reason: Pain, Mild (1-3) Acetaminophen (Tylenol 325mg Tab) 650 mg PO Q6 PRN PRN Reason: Fever >100.4 F Last Admin: 05/10/18 21:46 Dose: 650 mg Dextrose (Dextrose 50% Inj) 0 ml IV STAT PRN; Protocol PRN Reason: Hypoglycemia Protocol Last Admin: 05/09/18 11:21 Dose: 50 ml Dextrose (Glutose 15) 0 gm PO ONCE PRN; Protocol PRN Reason: Hypoglycemia Protocol Docusate Sodium (Colace) 100 mg PO BID [facility] Last Admin: 05/11/18 09:01 Dose: 100 mg Enoxaparin Sodium (Lovenox) 40 mg SC DAILY [facility]; Protocol Last Admin: 05/11/18 09:02 Dose: 40 mg Finasteride (Proscar) 5 mg PO DAILY [facility] Last Admin: 05/11/18 09:01 Dose: 5 mg Glipizide (Glucotrol Xl) 5 mg PO DAILY [facility] Last Admin: 05/09/18 09:58 Dose: 5 mg Glucagon (Glucagen Diagnostic Kit) 0 mg IM STAT PRN; Protocol PRN Reason: Hypoglycemia Protocol Meropenem 1 gm/ Sodium (Chloride) 100 mls @ 100 mls/hr IVPB Q8 [facility]; Protocol Insulin Human Regular (Humulin R) 0 units SC ACHS [facility]; Protocol Last Admin: 05/11/18 08:00 Dose: 2 unit Metoprolol Tartrate (Lopressor) 25 mg PO BID [facility] Last Admin: 05/11/18 09:01 Dose: 25 mg Ondansetron HCl (Zofran Inj) 4 mg IVP Q6 PRN PRN Reason: Nausea/Vomiting Pantoprazole Sodium (Protonix Ec Tab) 40 mg PO DAILY [facility] Last Admin: 05/11/18 09:01 Dose: 40 mg Sitagliptin Phosphate (Januvia) 50 mg PO DAILY [facility] Last Admin: 05/11/18 09:01 Dose: 50 mg Tamsulosin HCl (Flomax) 0.8 mg PO DAILY [facility] Last Admin: 05/11/18 09:02 Dose: 0.8 mg - Labs Labs: 05/11/18 04:30 05/11/18 04:30 - Constitutional Appears: Well, Non-toxic, No Acute Distress - Head Exam Head Exam: ATRAUMATIC, NORMAL INSPECTION, NORMOCEPHALIC - Eye Exam Eye Exam: EOMI, Normal appearance, PERRL Pupil Exam: NORMAL ACCOMODATION, PERRL - ENT Exam ENT Exam: Mucous Membranes Moist, Normal Exam - Neck Exam Neck Exam: Full ROM, Normal Inspection - Respiratory Exam Respiratory Exam: Clear to Ausculation Bilateral, NORMAL BREATHING PATTERN - Cardiovascular Exam Cardiovascular Exam: REGULAR RHYTHM, +S1, +S2 - GI/Abdominal Exam GI & Abdominal Exam: Soft, Normal Bowel Sounds - Extremities Exam Extremities Exam: Full ROM, Normal Capillary Refill, Normal Inspection - Back Exam Back Exam: NORMAL INSPECTION - Neurological Exam Neurological Exam: Alert, Awake, Oriented x3 - Psychiatric Exam Psychiatric exam: Normal Affect, Normal Mood - Skin Skin Exam: Dry, Intact, Normal Color, Warm Assessment and Plan - Assessment and Plan (Free Text) Assessment: 77 YO Male with PMHx of HTN, HLD, NIDDM, and BPH is admitted for UTI and sepsis. Sepsis -Spiked fever 100.8 05/10/18 21:46 -WBC trending down 16.2->12.1->7.6 -Lactate initially 3.8--> 2.1 -CXR neg for pneumonia, atelectasis noted -Ucx + for Proteus Mirabilis -bcx pending (prelim negative) -ID Dr. Gasca consulted -Stop Rocephin day 3 -Start Meropenem Q8h as per ID consulted, may need for 7 day - Will send pt to TCU for further abx administration -Tylenol for fever prn UTI -leukocytosis with UA + for leukes and RBC -ucx Proteus Mirabilis -stop with Rocephin -Start Meropenem Q8h as per ID consulted -Tylenol for fever prn -AZO for dysuria HTN -chronic -c/w home meds NIDDM -chronic -c/w home meds, hold metformin until sepsis resolved. c/w Januvia -low dose insulin and hypoglycemia protocol BPH -chronic -Increase flomax to 0.8 daily -urology consulted, follow up recs Dvt Proplx Lovenox 40 sc
[2018-05-11 11:52] VITALS: RESP 18; O2SAT 97
[2018-05-11] MEDS ORDERED: Iohexol 300 100 ML IJ ONE (12:36)
[2018-05-11] MEDS ORDERED: Sodium Chloride 0.9% 50 ML IV ONE (12:37)
--- NOTE | 2018-05-11 12:42 | CP.PCM.CON ---
History of Present Illness - History of Present Illness History of Present Illness: 77 YO Male with PMHx of HTN, HLD, NIDDM, and BPH presents to [facility] ED for pain with urination and chills. Pt states that for the past two months pt has had burning pain with urination, intense, and it has worsened over time. Pt was seen by his MD a few weeks ago was given a new medication which did not help his symptoms (Flomax). continues to spike fever despite IV antibiotics switched to Merrem and imaging ordered PMHx: HTN, HLD, NIDDM, and BPH SurgHx: Denies FHx: hx of Alzehimers in mother and liver problem in father (both passes away), HTN in family SHx: denies ETOH, smoking and illicit drug use Allergies: NKDA Past Patient History - Past Medical History & Family History Past Medical History?: Yes - Past Social History Smoking Status: Never Smoked - CARDIAC Hx Cardiac Disorders: Yes Hx Hypercholesterolemia: Yes Hx Hypertension: Yes - PULMONARY Hx Respiratory Disorders: No - NEUROLOGICAL Hx Neurological Disorder: No - HEENT Hx HEENT Problems: No - RENAL Hx Chronic Kidney Disease: No - ENDOCRINE/METABOLIC Hx Endocrine Disorders: Yes Hx Diabetes Mellitus Type 2: Yes - HEMATOLOGICAL/ONCOLOGICAL Hx Blood Disorders: No Hx AIDS: No Hx Human Immunodeficiency Virus (HIV): No - INTEGUMENTARY Hx Dermatological Problems: No - MUSCULOSKELETAL/RHEUMATOLOGICAL Hx Musculoskeletal Disorders: No Hx Falls: No - GASTROINTESTINAL Hx Gastrointestinal Disorders: No - GENITOURINARY/GYNECOLOGICAL Hx Genitourinary Disorders: Yes Hx Prostate Problems: Yes - PSYCHIATRIC Hx Psychophysiologic Disorder: No Hx Substance Use: No - SURGICAL HISTORY Hx Surgeries: No - ANESTHESIA Hx Anesthesia: No Hx Anesthesia Reactions: No Hx Malignant Hyperthermia: No Meds Allergies/Adverse Reactions: Allergies Allergy/AdvReac Type Severity Reaction Status Date / Time No Known Allergies Allergy Verified 05/08/18 13:46 - Medications Medications: Current Medications Acetaminophen (Tylenol 325mg Tab) 650 mg PO Q6 PRN PRN Reason: Pain, Mild (1-3) Acetaminophen (Tylenol 325mg Tab) 650 mg PO Q6 PRN PRN Reason: Fever >100.4 F Last Admin: 05/10/18 21:46 Dose: 650 mg Dextrose (Dextrose 50% Inj) 0 ml IV STAT PRN; Protocol PRN Reason: Hypoglycemia Protocol Last Admin: 05/09/18 11:21 Dose: 50 ml Dextrose (Glutose 15) 0 gm PO ONCE PRN; Protocol PRN Reason: Hypoglycemia Protocol Docusate Sodium (Colace) 100 mg PO BID [facility] Last Admin: 05/11/18 09:01 Dose: 100 mg Enoxaparin Sodium (Lovenox) 40 mg SC DAILY [facility]; Protocol Last Admin: 05/11/18 09:02 Dose: 40 mg Finasteride (Proscar) 5 mg PO DAILY [facility] Last Admin: 05/11/18 09:01 Dose: 5 mg Glipizide (Glucotrol Xl) 5 mg PO DAILY [facility] Last Admin: 05/09/18 09:58 Dose: 5 mg Glucagon (Glucagen Diagnostic Kit) 0 mg IM STAT PRN; Protocol PRN Reason: Hypoglycemia Protocol Meropenem 1 gm/ Sodium (Chloride) 100 mls @ 100 mls/hr IVPB Q8 [facility]; Protocol Insulin Human Regular (Humulin R) 0 units SC ACHS [facility]; Protocol Last Admin: 05/11/18 11:29 Dose: 3 unit Metoprolol Tartrate (Lopressor) 25 mg PO BID [facility] Last Admin: 05/11/18 09:01 Dose: 25 mg Ondansetron HCl (Zofran Inj) 4 mg IVP Q6 PRN PRN Reason: Nausea/Vomiting Pantoprazole Sodium (Protonix Ec Tab) 40 mg PO DAILY [facility] Last Admin: 05/11/18 09:01 Dose: 40 mg Sitagliptin Phosphate (Januvia) 50 mg PO DAILY [facility] Last Admin: 05/11/18 09:01 Dose: 50 mg Tamsulosin HCl (Flomax) 0.8 mg PO DAILY [facility] Last Admin: 05/11/18 09:02 Dose: 0.8 mg Results - Vital Signs Recent Vital Signs: Last Vital Signs Temp 98.3 F 05/11/18 11:51 Pulse 78 05/11/18 11:51 Resp 18 05/11/18 11:51 BP 149/72 05/11/18 11:51 Pulse Ox 97 05/11/18 11:51 - Labs Result Diagrams: 05/11/18 04:30 05/11/18 04:30 Labs: Laboratory Results - last 24 hr 05/10/18 05/10/18 05/10/18 12:12 16:04 20:55 WBC RBC Hgb Hct MCV MCH MCHC RDW Plt Count Sodium Potassium Chloride Carbon Dioxide Anion Gap BUN Creatinine Est GFR ( Amer) Est GFR (Non-Af Amer) POC Glucose (mg/dL) 237 H 193 H 215 H Random Glucose Calcium 05/11/18 05/11/18 05/11/18 04:30 04:30 05:18 WBC 7.6 RBC 4.09 L Hgb 11.8 L Hct 36.0 MCV 87.9 MCH 28.9 MCHC 32.9 L RDW 13.9 Plt Count 155 Sodium 139 Potassium 4.1 Chloride 107 Carbon Dioxide 25 Anion Gap 11 BUN 16 Creatinine 1.0 Est GFR ( Amer) > 60 Est GFR (Non-Af Amer) > 60 POC Glucose (mg/dL) 216 H Random Glucose 218 H Calcium 8.5 05/11/18 10:37 WBC RBC Hgb Hct MCV MCH MCHC RDW Plt Count Sodium Potassium Chloride Carbon Dioxide Anion Gap BUN Creatinine Est GFR ( Amer) Est GFR (Non-Af Amer) POC Glucose (mg/dL) 289 H Random Glucose Calcium
--- NOTE | 2018-05-11 14:29 | CT ---
Date of service: 05/11/2018 PROCEDURE: CT Abdomen and Pelvis with contrast HISTORY: Sepsis, urinary tract infection. Abscess suspected. COMPARISON: 05/09/2018 pelvic ultrasound TECHNIQUE: Intravenous contrast dose: 95 cc Omnipaque 300. Radiation dose: Total exam DLP = 646.94 mGy-cm. This CT exam was performed using one or more of the following dose reduction techniques: Automated exposure control, adjustment of the mA and/or kV according to patient size, and/or use of iterative reconstruction technique. FINDINGS: LOWER THORAX: Unremarkable. LIVER: Hepatic steatosis. No focal masses. No intrahepatic bile duct dilatation or perihepatic ascites. GALLBLADDER AND BILE DUCTS: Unremarkable. PANCREAS: Unremarkable. No gross lesion or ductal dilatation. SPLEEN: Unremarkable. ADRENALS: Unremarkable. No mass. KIDNEYS AND URETERS: Unremarkable. No hydronephrosis. No solid mass. VASCULATURE: Atherosclerotic calcification and mural plaque present. Findings are seen throughout the aorta which is non aneurysmal. BOWEL: Mild thickening of the bladder wall a nonspecific finding thick and be seen with cystitis. No focal bladder wall abnormalities detected. APPENDIX: No abnormalities to suggest acute appendicitis. No right lower quadrant inflammatory processes identified. PERITONEUM: Unremarkable. No free fluid. No free air. LYMPH NODES: Unremarkable. No enlarged lymph nodes. BLADDER: Unremarkable. REPRODUCTIVE: Heterogeneous enhancement of normal size prostate. Although nonspecific, findings can be seen with acute prostatitis. Periurethral intra prostatic calcifications suggest a component of chronic prostatitis. BONES: No acute fracture. OTHER FINDINGS: None. IMPRESSION: Mild thickening of the wall of the bladder likely cystitis. Heterogeneous contrast enhancement the prostate a nonspecific finding that can be seen in prostatitis. Additional benign and/or incidental findings described above.
--- NOTE | 2018-05-11 15:07 | CP.PCM.DIS ---
<Kg Joel - Last Filed: 05/11/18 15:43> Provider - Provider Date of Admission: 05/08/18 17:05 Attending physician: Anthony Vick MD Time Spent in preparation of Discharge (in minutes): 20 Diagnosis - Discharge Diagnosis (1) Urinary tract infection Status: Acute (2) Sepsis Status: Resolved Hospital Course - Lab Results Lab Results: Micro Results 05/08/18 17:00 Blood Blood Culture - Preliminary NO GROWTH AFTER 48 HOURS 05/08/18 17:00 Urine Urine Culture - Final Proteus Mirabilis Most Recent Lab Values WBC 7.6 K/uL (4.8-10.8) 05/11/18 04:30 RBC 4.09 Mil/uL (4.40-5.90) L 05/11/18 04:30 Hgb 11.8 g/dL (12.0-18.0) L 05/11/18 04:30 Hct 36.0 % (35.0-51.0) 05/11/18 04:30 MCV 87.9 fl (80.0-94.0) 05/11/18 04:30 MCH 28.9 pg (27.0-31.0) 05/11/18 04:30 MCHC 32.9 g/dL (33.0-37.0) L 05/11/18 04:30 RDW 13.9 % (11.5-14.5) 05/11/18 04:30 Plt Count 155 K/uL (130-400) 05/11/18 04:30 MPV 9.0 fl (7.2-11.7) 05/10/18 04:25 Neut % (Auto) 70.5 % (50.0-75.0) 05/10/18 04:25 Lymph % (Auto) 21.3 % (20.0-40.0) 05/10/18 04:25 Newton % (Auto) 5.4 % (0.0-10.0) 05/10/18 04:25 Eos % (Auto) 2.1 % (0.0-4.0) 05/10/18 04:25 Baso % (Auto) 0.7 % (0.0-2.0) 05/10/18 04:25 Neut # (Auto) 8.6 K/uL (1.8-7.0) H 05/10/18 04:25 Lymph # (Auto) 2.6 K/uL (1.0-4.3) 05/10/18 04:25 Newton # (Auto) 0.7 K/uL (0.0-0.8) 05/10/18 04:25 Eos # (Auto) 0.3 K/uL (0.0-0.7) 05/10/18 04:25 Baso # (Auto) 0.1 K/uL (0.0-0.2) 05/10/18 04:25 Neutrophils % (Manual) 82 % (42-75) H 05/08/18 14:48 Lymphocytes % (Manual) 14 % (20-50) L 05/08/18 14:48 Monocytes % (Manual) 4 % (0-10) 05/08/18 14:48 Platelet Estimate Normal (NORMAL) 05/08/18 14:48 Poikilocytosis (manual Slight 05/08/18 14:48 Anisocytosis (manual) Slight 05/08/18 14:48 Ovalocytes Slight 05/08/18 14:48 pO2 15 mm/Hg (30-55) L 05/08/18 17:26 VBG pH 7.38 (7.32-7.43) 05/08/18 17:26 VBG pCO2 45 mmHg (40-60) 05/08/18 17:26 VBG HCO3 23.6 mmol/L 05/08/18 17:26 VBG Total CO2 28.0 mmol/L (22-28) 05/08/18 17:26 VBG O2 Sat (Calc) 23.6 % (40-65) L 05/08/18 17:26 VBG Base Excess 1.0 mmol/L (0.0-2.0) 05/08/18 17:26 VBG Potassium 3.9 mmol/L (3.6-5.2) 05/08/18 17:26 Sodium 139.0 mmol/L (132-148) 05/08/18 17:26 Chloride 105.0 mmol/L (98-107) 05/08/18 17:26 Glucose 138 mg/dL (75-110) H 05/08/18 17:26 Lactate 2.1 mmol/L (0.7-2.1) 05/08/18 17:26 FiO2 21.0 % 05/08/18 17:26 Crit Value Called To rahat Douglas 05/08/18 17:26 Crit Value Called By Keith granado 05/08/18 17:26 Crit Value Read Back Y 05/08/18 17:26 Blood Gas Notified Time 1735 05/08/18 17:26 Sodium 139 mmol/l (132-148) 05/11/18 04:30 Potassium 4.1 MMOL/L (3.6-5.0) 05/11/18 04:30 Chloride 107 mmol/L (98-107) 05/11/18 04:30 Carbon Dioxide 25 mmol/L (22-30) 05/11/18 04:30 Anion Gap 11 (10-20) 05/11/18 04:30 BUN 16 mg/dl (9-20) 05/11/18 04:30 Creatinine 1.0 mg/dl (0.8-1.5) 05/11/18 04:30 Est GFR ( Amer) > 60 05/11/18 04:30 Est GFR (Non-Af Amer) > 60 05/11/18 04:30 POC Glucose (mg/dL) 289 mg/dL (65-110) H 05/11/18 10:37 Random Glucose 218 mg/dL (75-110) H 05/11/18 04:30 Lactic Acid 0.9 MMOL/L (0.7-2.1) 05/09/18 04:30 Calcium 8.5 mg/dL (8.4-10.2) 05/11/18 04:30 Total Bilirubin 0.9 mg/dl (0.2-1.3) 05/08/18 15:40 AST 19 U/L (17-59) 05/08/18 15:40 ALT 16 U/L (21-72) L 05/08/18 15:40 Alkaline Phosphatase 58 U/L (38-126) 05/08/18 15:40 Total Protein 7.4 G/DL (6.3-8.2) 05/08/18 15:40 Albumin 4.1 g/dL (3.5-5.0) 05/08/18 15:40 Globulin 3.3 gm/dL (2.2-3.9) 05/08/18 15:40 Albumin/Globulin Ratio 1.2 (1.0-2.1) 05/08/18 15:40 Venous Blood Potassium 3.9 mmol/L (3.6-5.2) 05/08/18 17:26 Urine Color Yellow (YELLOW) 05/08/18 15:30 Urine Clarity Slighty-cloudy (Clear) 05/08/18 15:30 Urine pH 5.0 (5.0-8.0) 05/08/18 15:30 Ur Specific [place] 1.017 (1.003-1.030) 05/08/18 15:30 Urine Protein Negative mg/dL (NEGATIVE) 05/08/18 15:30 Urine Glucose (UA) Neg mg/dL (Normal) 05/08/18 15:30 Urine Ketones Negative mg/dL (NEGATIVE) 05/08/18 15:30 Urine Blood Moderate (NEGATIVE) 05/08/18 15:30 Urine Nitrate Negative (NEGATIVE) 05/08/18 15:30 Urine Bilirubin Negative (NEGATIVE) 05/08/18 15:30 Urine Urobilinogen 0.2-1.0 mg/dL (0.2-1.0) 05/08/18 15:30 Ur Leukocyte Esterase Mod Vicente/uL (Negative) 05/08/18 15:30 Urine RBC (Auto) 13 /hpf (0-3) H 05/08/18 15:30 Urine Microscopic WBC 39 /hpf (0-5) H 05/08/18 15:30 Ur Squamous Epith Cells < 1 /hpf (0-5) 05/08/18 15:30 Urine Bacteria Occ (<OCC) H 05/08/18 15:30 Influenza Typ A,B (EIA) Negative for flu a/b (NEGATIVE) 05/08/18 16:38 - Hospital Course Hospital Course: 77 yo male with PMH of HTN, HLD, NIDDM, And BPH presents to [facility] ed for pain with urination and chills. Pt admitted for evaluation and treatment of UTI. Upon admission pt UC was positive for Proteus Mirabilis and was treated with Rocephin for 3 days. Patient labs were normalized, no WBC was noted, but patient was still spiking fever once a day, Dr Gasca was consulted and recommended CT scan with contrast to r/o abscess and change antibiotic to Meropenem. Pt was seen and examined today. No acute event overnight. Pt ct scan was back and negative for abscess. Pt state he still have burning sensation upon urination, otherwise he denies any headache, chest pain, sob, abd pain, diarrhea, constipation or any other symptoms. Pt chart was reviewed, vitals are stabilized, CBC and Physical exam WNL, Pt is stable to be discharged to TCU to continue IV antibiotic. Pt received 3 dose of Rocephin PT received 1 dose of Meropenem Discharge Exam - Head Exam Head Exam: ATRAUMATIC, NORMAL INSPECTION, NORMOCEPHALIC - Eye Exam Eye Exam: EOMI, Normal appearance, PERRL Pupil Exam: NORMAL ACCOMODATION, PERRL - Respiratory Exam Respiratory Exam: Clear to PA & Lateral, NORMAL BREATHING PATTERN, UNREMARKABLE - Cardiovascular Exam Cardiovascular Exam: REGULAR RHYTHM, +S1, +S2 - GI/Abdominal Exam GI & Abdominal Exam: Normal Bowel Sounds, Unremarkable - Extremities Exam Extremities exam: normal inspection - Back Exam Back exam: NORMAL INSPECTION - Neurological Exam Neurological exam: Alert, Normal Gait, Oriented x3 - Psychiatric Exam Psychiatric exam: Normal Affect, Normal Mood - Skin Skin Exam: Dry, Intact, Normal Color, Warm Discharge Plan - Follow Up Plan Condition: FAIR Disposition: REHAB FACILITY/REHAB UNIT Instructions: Urinary Tract Infection, Adult (DC), Sepsis, Adult (DC), Urinary Tract Infection in Women (DC), Urinary Tract Infection in Men (DC), Sepsis (DC), Sepsis (GEN), Dysuria (GEN) Referrals: Odin Godoy MD [Medical Doctor] - Qamar Dobson MD [Family Provider] - Lenny Gasca MD [Staff Provider] - <Ludmila Dunne - Last Filed: 05/11/18 16:19> Provider - Provider Date of Admission: 05/08/18 17:05 Attending physician: Anthony Vick MD Hospital Course - Lab Results Lab Results: Micro Results 05/08/18 17:00 Blood Blood Culture - Preliminary NO GROWTH AFTER 48 HOURS 05/08/18 17:00 Urine Urine Culture - Final Proteus Mirabilis Most Recent Lab Values WBC 7.6 K/uL (4.8-10.8) 05/11/18 04:30 RBC 4.09 Mil/uL (4.40-5.90) L 05/11/18 04:30 Hgb 11.8 g/dL (12.0-18.0) L 05/11/18 04:30 Hct 36.0 % (35.0-51.0) 05/11/18 04:30 MCV 87.9 fl (80.0-94.0) 05/11/18 04:30 MCH 28.9 pg (27.0-31.0) 05/11/18 04:30 MCHC 32.9 g/dL (33.0-37.0) L 05/11/18 04:30 RDW 13.9 % (11.5-14.5) 05/11/18 04:30 Plt Count 155 K/uL (130-400) 05/11/18 04:30 MPV 9.0 fl (7.2-11.7) 05/10/18 04:25 Neut % (Auto) 70.5 % (50.0-75.0) 05/10/18 04:25 Lymph % (Auto) 21.3 % (20.0-40.0) 05/10/18 04:25 Newton % (Auto) 5.4 % (0.0-10.0) 05/10/18 04:25 Eos % (Auto) 2.1 % (0.0-4.0) 05/10/18 04:25 Baso % (Auto) 0.7 % (0.0-2.0) 05/10/18 04:25 Neut # (Auto) 8.6 K/uL (1.8-7.0) H 05/10/18 04:25 Lymph # (Auto) 2.6 K/uL (1.0-4.3) 05/10/18 04:25 Newton # (Auto) 0.7 K/uL (0.0-0.8) 05/10/18 04:25 Eos # (Auto) 0.3 K/uL (0.0-0.7) 05/10/18 04:25 Baso # (Auto) 0.1 K/uL (0.0-0.2) 05/10/18 04:25 Neutrophils % (Manual) 82 % (42-75) H 05/08/18 14:48 Lymphocytes % (Manual) 14 % (20-50) L 05/08/18 14:48 Monocytes % (Manual) 4 % (0-10) 05/08/18 14:48 Platelet Estimate Normal (NORMAL) 05/08/18 14:48 Poikilocytosis (manual Slight 05/08/18 14:48 Anisocytosis (manual) Slight 05/08/18 14:48 Ovalocytes Slight 05/08/18 14:48 pO2 15 mm/Hg (30-55) L 05/08/18 17:26 VBG pH 7.38 (7.32-7.43) 05/08/18 17:26 VBG pCO2 45 mmHg (40-60) 05/08/18 17:26 VBG HCO3 23.6 mmol/L 05/08/18 17:26 VBG Total CO2 28.0 mmol/L (22-28) 05/08/18 17:26 VBG O2 Sat (Calc) 23.6 % (40-65) L 05/08/18 17:26 VBG Base Excess 1.0 mmol/L (0.0-2.0) 05/08/18 17:26 VBG Potassium 3.9 mmol/L (3.6-5.2) 05/08/18 17:26 Sodium 139.0 mmol/L (132-148) 05/08/18 17:26 Chloride 105.0 mmol/L (98-107) 05/08/18 17:26 Glucose 138 mg/dL (75-110) H 05/08/18 17:26 Lactate 2.1 mmol/L (0.7-2.1) 05/08/18 17:26 FiO2 21.0 % 05/08/18 17:26 Crit Value Called To rahat Douglas 05/08/18 17:26 Crit Value Called By Keith granado 05/08/18 17:26 Crit Value Read Back Y 05/08/18 17:26 Blood Gas Notified Time 1735 05/08/18 17:26 Sodium 139 mmol/l (132-148) 05/11/18 04:30 Potassium 4.1 MMOL/L (3.6-5.0) 05/11/18 04:30 Chloride 107 mmol/L (98-107) 05/11/18 04:30 Carbon Dioxide 25 mmol/L (22-30) 05/11/18 04:30 Anion Gap 11 (10-20) 05/11/18 04:30 BUN 16 mg/dl (9-20) 05/11/18 04:30 Creatinine 1.0 mg/dl (0.8-1.5) 05/11/18 04:30 Est GFR ( Amer) > 60 05/11/18 04:30 Est GFR (Non-Af Amer) > 60 05/11/18 04:30 POC Glucose (mg/dL) 289 mg/dL (65-110) H 05/11/18 10:37 Random Glucose 218 mg/dL (75-110) H 05/11/18 04:30 Lactic Acid 0.9 MMOL/L (0.7-2.1) 05/09/18 04:30 Calcium 8.5 mg/dL (8.4-10.2) 05/11/18 04:30 Total Bilirubin 0.9 mg/dl (0.2-1.3) 05/08/18 15:40 AST 19 U/L (17-59) 05/08/18 15:40 ALT 16 U/L (21-72) L 05/08/18 15:40 Alkaline Phosphatase 58 U/L (38-126) 05/08/18 15:40 Total Protein 7.4 G/DL (6.3-8.2) 05/08/18 15:40 Albumin 4.1 g/dL (3.5-5.0) 05/08/18 15:40 Globulin 3.3 gm/dL (2.2-3.9) 05/08/18 15:40 Albumin/Globulin Ratio 1.2 (1.0-2.1) 05/08/18 15:40 Venous Blood Potassium 3.9 mmol/L (3.6-5.2) 05/08/18 17:26 Urine Color Yellow (YELLOW) 05/08/18 15:30 Urine Clarity Slighty-cloudy (Clear) 05/08/18 15:30 Urine pH 5.0 (5.0-8.0) 05/08/18 15:30 Ur Specific [place] 1.017 (1.003-1.030) 05/08/18 15:30 Urine Protein Negative mg/dL (NEGATIVE) 05/08/18 15:30 Urine Glucose (UA) Neg mg/dL (Normal) 05/08/18 15:30 Urine Ketones Negative mg/dL (NEGATIVE) 05/08/18 15:30 Urine Blood Moderate (NEGATIVE) 05/08/18 15:30 Urine Nitrate Negative (NEGATIVE) 05/08/18 15:30 Urine Bilirubin Negative (NEGATIVE) 05/08/18 15:30 Urine Urobilinogen 0.2-1.0 mg/dL (0.2-1.0) 05/08/18 15:30 Ur Leukocyte Esterase Mod Vicente/uL (Negative) 05/08/18 15:30 Urine RBC (Auto) 13 /hpf (0-3) H 05/08/18 15:30 Urine Microscopic WBC 39 /hpf (0-5) H 05/08/18 15:30 Ur Squamous Epith Cells < 1 /hpf (0-5) 05/08/18 15:30 Urine Bacteria Occ (<OCC) H 05/08/18 15:30 Influenza Typ A,B (EIA) Negative for flu a/b (NEGATIVE) 05/08/18 16:38 Attending/Attestation - Attestation I have personally seen and examined this patient.: Yes I have fully participated in the care of the patient.: Yes I have reviewed all pertinent clinical information, including history, physical exam and plan: Yes Notes (Text): Sepsis sec to UTI ( Proteus) - Will d/c pt to TCU for 1 more week for IV Meropenem - Dr Gasca consulted- pt was spiking despite being on IV Ceftriaxone - abx changed to Meropenem BPH - cont Flomax 0.8 mg daily as rec by Dr Godoy - Dr Godoy will cont to ff up pt in TCU and as outpt HTN cont Metoprolol DM Type II cont Januvia, decrease Glucotrol dose to 2.5 mg daily hold Metformin as pt received contrast
[2018-05-11 16:31] VITALS: BP 147/65; PULSE 70; TEMP 99.1
--- NOTE | 2018-05-11 19:19 | PQF ---
PROVIDER RESPONSE TEXT: DM Type II , with hypoglycemic episode REVIEWER QUERY TEXT: Diabetic Associated Manifestations Documentation of NIDDM . Accuchecks monitored. On 05/09/18 Glucose 35 then <20. Patient asymptomatic as per nursing notes and D50 given. Please specify any manifestations associated / due to diabetes Such as: -- Diabetes with hypoglycemia -- Diabetes with hyperglycemia -- Diabetes with renal manifestation -- Diabetes with neurologic manifestation -- Diabetes with ophthalmic manifestation -- Diabetes with peripheral circulatory manifestation -- Other, please specify The patient's Clinical Indicators include: Documentation of NIDDM . Accuchecks monitored. On 05/09 GLucose 35 then <20. Patient asymptomatic as per nursing notes and D50 given. Query created by: Fouzia Daniels on 05/10/2018 1:10 PM Electronically signed by: Ludmila Dunne MD 05/11/2018 7:16 PM
[2018-05-12] MEDS ORDERED: GlipiZIDE 2.5 mg SR Tab PO SCH (08:00)
== END 2018-05-11 18:10 | DRG 872 ==
LOC: H.ER 13:31 → H.ERHOLD 17:05 → H.TEL 18:50
DX: A41.9 Sepsis, unspecified organism (principal); N39.0 Urinary tract infection, site not specified; E87.2 Acidosis; E11.649 Type 2 diabetes mellitus with hypoglycemia without coma; B96.4 Proteus (mirabilis) (morganii) as the cause of diseases classified elsewhere; N40.0 Benign prostatic hyperplasia without lower urinary tract symptoms; E78.5 Hyperlipidemia, unspecified; I10 Essential (primary) hypertension; E78.00 Pure hypercholesterolemia, unspecified; Z79.84 Long term (current) use of oral hypoglycemic drugs

== ENCOUNTER 2018-05-11 16:00 | Inpatient (IN) | payer OTHER ==
[2018-05-11 18:26] VITALS: BMI 29.4
[2018-05-11] MEDS ORDERED: Glucagon Recombinant 1 mg Inj IM PRN (18:50)
[2018-05-11] MEDS ORDERED: Dextrose 50% SYRINGE Inj (50 ml) IV PRN (18:50)
[2018-05-11] MEDS ORDERED: Patient's Own Med (Meropenem [Merrem Iv] 1 GM) IV SCH (19:00)
[2018-05-11] MEDS: Insulin Lispro (humaLOG) 100 Units/ml Inj SC SCH (22:02)
[2018-05-11 22:22] VITALS: RESP 20
[2018-05-12] MEDS: Meropenem 1 GM in Sodium Chloride 0.9% 100 ML IVPB SCH ×3 (01:31→16:20)
--- NOTE | 2018-05-12 07:24 | CP.PCM.HP ---
<Kg Joel - Last Filed: 05/12/18 09:58> History of Present Illness - History of Present Illness History of Present Illness: 78 YO Male with PMHx of HTN, HLD, NIDDM, and BPH admitted to TCU for Continue IV abx for UTI ( Proteus Mirapilis) and physical therapy. Pt denies any chest pain, sob, abd pain, diarrhea, constipation, or any other symptoms. PMD: Qamar Dobson MD PMHx: HTN, HLD, NIDDM, and BPH SurgHx: Denies FHx: hx of Alzehimers in mother and liver problem in father (both passes away), HTN in family SHx: denies ETOH, smoking and illicit drug use Allergies: NKDA Meds: see med list Present on Admission - Present on Admission Any Indicators Present on Admission: No Review of Systems - Review of Systems All systems: reviewed and no additional remarkable complaints except Past Patient History - Past Medical History & Family History Past Medical History?: Yes - Past Social History Smoking Status: Never Smoked - CARDIAC Hx Cardiac Disorders: Yes Hx Hypercholesterolemia: Yes Hx Hypertension: Yes - PULMONARY Hx Respiratory Disorders: No - NEUROLOGICAL Hx Neurological Disorder: No - HEENT Hx HEENT Problems: No - RENAL Hx Chronic Kidney Disease: No - ENDOCRINE/METABOLIC Hx Endocrine Disorders: Yes Hx Diabetes Mellitus Type 2: Yes - HEMATOLOGICAL/ONCOLOGICAL Hx AIDS: No Hx Human Immunodeficiency Virus (HIV): No - INTEGUMENTARY Hx Dermatological Problems: No - MUSCULOSKELETAL/RHEUMATOLOGICAL Hx Falls: No - GASTROINTESTINAL Hx Gastrointestinal Disorders: No - GENITOURINARY/GYNECOLOGICAL Hx Genitourinary Disorders: Yes Hx Prostate Problems: Yes - PSYCHIATRIC Hx Substance Use: No - SURGICAL HISTORY Hx Surgeries: No - ANESTHESIA Hx Anesthesia: No Hx Anesthesia Reactions: No Hx Malignant Hyperthermia: No Meds Allergies/Adverse Reactions: Allergies Allergy/AdvReac Type Severity Reaction Status Date / Time No Known Allergies Allergy Verified 05/08/18 13:46 Physical Exam - Constitutional Appears: Well, Non-toxic, No Acute Distress - Head Exam Head Exam: ATRAUMATIC, NORMAL INSPECTION, NORMOCEPHALIC - Eye Exam Eye Exam: EOMI, Normal appearance, PERRL Pupil Exam: NORMAL ACCOMODATION, PERRL - ENT Exam ENT Exam: Mucous Membranes Moist, Normal Exam - Neck Exam Neck exam: Positive for: Normal Inspection - Respiratory Exam Respiratory Exam: Clear to Auscultation Bilateral, NORMAL BREATHING PATTERN - Cardiovascular Exam Cardiovascular Exam: REGULAR RHYTHM, +S1, +S2 - GI/Abdominal Exam GI & Abdominal Exam: Normal Bowel Sounds, Soft - Extremities Exam Extremities exam: Positive for: normal inspection - Back Exam Back exam: NORMAL INSPECTION - Neurological Exam Neurological exam: Alert, Normal Gait - Psychiatric Exam Psychiatric exam: Normal Affect, Normal Mood - Skin Skin Exam: Dry, Intact, Normal Color, Warm Results - Vital Signs Recent Vital Signs: Last Vital Signs Temp 97.3 F L 05/11/18 22:21 Pulse 80 05/11/18 22:21 Resp 20 05/11/18 22:21 BP 145/69 05/11/18 22:21 Pulse Ox 97 05/11/18 22:21 - Labs Labs: Laboratory Results - last 24 hr 05/11/18 05/12/18 21:25 06:13 POC Glucose (mg/dL) 148 H 166 H Assessment & Plan - Assessment and Plan (Free Text) Assessment: 78 YO Male with PMHx of HTN, HLD, NIDDM, and BPH admitted to TCU for Continue IV abx for UTI ( Proteus Mirapilis) and physical therapy. UTI Continue Meropenem Contineu Physical therapy Follow up with Dr Gasca HTN -chronic -c/w home meds NIDDM -chronic -c/w home meds, -low dose insulin and hypoglycemia protocol BPH -chronic -c/w flomax -urology consulted, follow up recs DVT prophylaxis Levonox 40 sc <Ludmila Dunne - Last Filed: 05/12/18 17:00> Results - Vital Signs Recent Vital Signs: Last Vital Signs Temp 97.5 F L 05/12/18 15:51 Pulse 68 05/12/18 16:21 Resp 20 05/12/18 15:51 BP 171/68 H 05/12/18 16:21 Pulse Ox 98 05/12/18 15:51 - Labs Labs: Laboratory Results - last 24 hr 05/11/18 05/12/18 05/12/18 21:25 06:13 10:45 POC Glucose (mg/dL) 148 H 166 H 278 H 05/12/18 16:14 POC Glucose (mg/dL) 177 H Attending/Attestation - Attestation I have personally seen and examined this patient.: Yes I have fully participated in the care of the patient.: Yes I have reviewed all pertinent clinical information: Yes
[2018-05-12] MEDS ORDERED: GlipiZIDE 2.5 mg SR Tab PO SCH (08:00)
[2018-05-12] MEDS: Enoxaparin 40 mg Syringe SC SCH (08:16)
[2018-05-12] MEDS: GlipiZIDE 2.5 mg SR Tab PO SCH (08:18)
[2018-05-12] MEDS: Insulin Lispro (humaLOG) 100 Units/ml Inj SC SCH ×5 (08:20→21:23)
--- NOTE | 2018-05-12 17:26 | CP.PCM.CON ---
History of Present Illness - History of Present Illness History of Present Illness: 77 YO Male presented to [facility] ED for pain with urination and chills for the past two months Pt was seen by his MD a few weeks ago was given a new medication which did not help his symptoms (Flomax). Despite antibiotics he continued to have fever Urine grew Proteus which was sensitive and blood cultures negative He was diagnosed with prostatitis and transferred to TCU PMHx: HTN, HLD, NIDDM, and BPH SurgHx: Denies FHx: hx of Alzehimers in mother and liver problem in father (both passes away), HTN in family SHx: denies ETOH, smoking and illicit drug use Allergies: NKDA Review of Systems - Review of Systems All systems: reviewed and no additional remarkable complaints except - Constitutional Constitutional: As Per HPI. absent: Chills, Fever - EENT Eyes: absent: As Per HPI, Blind Spots, Blurred Vision, Change in Vision, Decreased Night Vision, Diplopia, Discharge, Dry Eye, Exophthalmos, Floaters, Irritation, Itchy Eyes, Loss of Peripheral Vision, Pain, Photophobia, Requires Corrective Lenses, Sees Flashes, Spots in Vision, Tunnel Vision, Other Visual Disturbances, Loss of Vision, Other Ears: absent: As Per HPI, Decreased Hearing, Ear Discharge, Ear Pain, Tinnitus, Abnormal Hearing, Disequilibrium, Dizziness, Other Nose/Mouth/Throat: absent: As Per HPI, Epistaxis, Nasal Congestion, Nasal Discharge, Nasal Obstruction, Nasal Trauma, Nose Pain, Post Nasal Drip, Sinus Pain, Sinus Pressure, Bleeding Gums, Change in Voice, Dental Pain, Dry Mouth, Dysphagia, Halitosis, Hoarsness, Lip Swelling, Mouth Lesions, Mouth Pain, Odynophagia, Sore Throat, Throat Swelling, Tongue Swelling, Facial Pain, Neck Pain, Neck Mass, Other - Cardiovascular Cardiovascular: absent: As Per HPI, Acrocyanosis, Chest Pain, Chest Pain at Rest, Chest Pain with Activity, Claudication, Diaphoresis, Dyspnea, Dyspnea on Exertion, Edema, Irregular Heart Rhythm, Pain Radiating to Arm/Neck/Jaw, Leg Edema, Leg Ulcers, Lightheadedness, Orthopnea, Palpitations, Paroxysmal Nocturnal Dyspnea, Pedal Edema, Radiating Pain, Rapid Heart Rate, Slow Heart Rate, Syncope, Other - Respiratory Respiratory: absent: As Per HPI, Cough, Dyspnea, Hemoptysis, Dyspnea on Exertion, Wheezing, Snoring, Stridor, Pain on Inspiration, Chest Congestion, Excessive Mucous Production, Change in Mucous Color, Pain with Coughing, Other - Gastrointestinal Gastrointestinal: absent: As Per HPI, Abdominal Pain, Belching, Bloating, Change in Bowel Habits, Change in Stool Character, Coffee Ground Emesis, Constipation, Cramping, Diarrhea, Dyspepsia, Dysphagia, Early Satiety, Excessive Flatus, Fecal Incontinence, Heartburn, Hematemesis, Hematochezia, Loose Stools, Melena, Nausea, Odynophagia, Temesmus, Vomiting, Other - Genitourinary Genitourinary: As Per HPI - Musculoskeletal Musculoskeletal: absent: As Per HPI, Abnormal Gait, Arthralgias, Atrophy, Back Pain, Deformity, Joint Swelling, Limited Range of Motion, Loss of Height, Muscle Cramps, Muscle Weakness, Myalgias, Neck Pain, Numbness, Radiating Pain into Limb, Stiffness, Tingling, Other - Integumentary Integumentary: absent: As Per HPI, Acne, Alopecia, Bleeding Lesions, Change in Hair, Change in Nails, Change in Pigmentation, Changing Lesions, Dry Skin, Erythema, Furuncle, Hirsutism, Lesions, New Lesions, Non-Healing Lesions, Photosensitivity, Pruritus, Rash, Skin Pain, Skin Ulcer, Sores, Striae, Swelling, Unusual Bruising, Wounds, Jaundice, Other - Neurological Neurological: absent: As Per HPI, Abnormal Gait, Abnormal Hearing, Abnormal Movements, Abnormal Speech, Behavioral Changes, Burning Sensations, Confusion, Convulsions, Disequilibrium, Dizziness, Numbness, Focal Weakness, Frequent Falls, Headaches, Lack of Coordination, Loss of Vision, Memory Loss, Paresthesias, Radicular Pain, Restless Legs, Sensory Deficit, Syncope, Tingling, Tremor, Vertigo, Weakness, Other Visual Disturbances, Other - Psychiatric Psychiatric: absent: As Per HPI, Abnormal Sleep Pattern, Anhedonia, Anxiety, Auditory Hallucinations, Behavioral Changes, Change in Appetite, Change in Libido, Confusion, Depression, Difficulty Concentrating, Hallucinations, Homicidal Ideation, Hopelessness, Irritability, Memory Loss, Mood Swings, Panic Attacks, Paranoia, Suicidal Ideation, Visual Hallucinations, Tactile Hallucinations, Other - Endocrine Endocrine: As Per HPI - Hematologic/Lymphatic Hematologic: absent: As Per HPI, Easy Bleeding, Easy Bruising, Lymphadenopathy, Other Past Patient History - Past Medical History & Family History Past Medical History?: Yes - Past Social History Smoking Status: Never Smoked - CARDIAC Hx Cardiac Disorders: Yes Hx Hypercholesterolemia: Yes Hx Hypertension: Yes - PULMONARY Hx Respiratory Disorders: No - NEUROLOGICAL Hx Neurological Disorder: No - HEENT Hx HEENT Problems: No - RENAL Hx Chronic Kidney Disease: No - ENDOCRINE/METABOLIC Hx Endocrine Disorders: Yes Hx Diabetes Mellitus Type 2: Yes - HEMATOLOGICAL/ONCOLOGICAL Hx AIDS: No Hx Human Immunodeficiency Virus (HIV): No - INTEGUMENTARY Hx Dermatological Problems: No - MUSCULOSKELETAL/RHEUMATOLOGICAL Hx Falls: No - GASTROINTESTINAL Hx Gastrointestinal Disorders: No - GENITOURINARY/GYNECOLOGICAL Hx Genitourinary Disorders: Yes Hx Prostate Problems: Yes - PSYCHIATRIC Hx Substance Use: No - SURGICAL HISTORY Hx Surgeries: No - ANESTHESIA Hx Anesthesia: No Hx Anesthesia Reactions: No Hx Malignant Hyperthermia: No Meds Allergies/Adverse Reactions: Allergies Allergy/AdvReac Type Severity Reaction Status Date / Time No Known Allergies Allergy Verified 05/08/18 13:46 - Medications Medications: Current Medications Acetaminophen (Tylenol 325mg Tab) 650 mg PO Q6 PRN PRN Reason: Fever >100.4 F Acetaminophen (Tylenol 325mg Tab) 650 mg PO Q6 PRN PRN Reason: for pain level 1-3 Dextrose (Dextrose 50% Inj) 0 ml IV STAT PRN; Protocol PRN Reason: Hypoglycemia Protocol Dextrose (Glutose 15) 0 gm PO ONCE PRN; Protocol PRN Reason: Hypoglycemia Protocol Docusate Sodium (Colace) 100 mg PO BID [facility] Last Admin: 05/12/18 16:21 Dose: 100 mg Enoxaparin Sodium (Lovenox) 40 mg SC DAILY [facility]; Protocol Last Admin: 05/12/18 08:16 Dose: 40 mg Finasteride (Proscar) 5 mg PO DAILY [facility] Last Admin: 05/12/18 08:18 Dose: 5 mg Glipizide (Glucotrol Xl) 2.5 mg PO BRK [facility] Last Admin: 05/12/18 08:18 Dose: 2.5 mg Glucagon (Glucagen Diagnostic Kit) 0 mg IM STAT PRN; Protocol PRN Reason: Hypoglycemia Protocol Meropenem 1 gm/ Sodium (Chloride) 100 mls @ 100 mls/hr IVPB Q8 [facility] Last Admin: 05/12/18 16:20 Dose: 100 mls/hr Insulin Human Lispro (Humalog) 0 units SC ACHS [facility]; Protocol Last Admin: 05/12/18 16:28 Dose: 1 units Metoprolol Tartrate (Lopressor) 25 mg PO BID [facility] Last Admin: 05/12/18 16:21 Dose: 25 mg Sitagliptin Phosphate (Januvia) 50 mg PO DAILY [facility] Last Admin: 05/12/18 08:18 Dose: 50 mg Tamsulosin HCl (Flomax) 0.8 mg PO DAILY [facility] Last Admin: 05/12/18 08:18 Dose: 0.8 mg Physical Exam - Constitutional Appears: Non-toxic, No Acute Distress - Head Exam Head Exam: ATRAUMATIC, NORMAL INSPECTION, NORMOCEPHALIC - Eye Exam Eye Exam: EOMI, PERRL. absent: Scleral icterus - ENT Exam ENT Exam: Mucous Membranes Dry, Normal External Ear Exam - Neck Exam Neck exam: Negative for: Lymphadenopathy - Respiratory Exam Respiratory Exam: Decreased Breath Sounds, Clear to Auscultation Bilateral - Cardiovascular Exam Cardiovascular Exam: REGULAR RHYTHM, +S1, +S2 - GI/Abdominal Exam GI & Abdominal Exam: Diminished Bowel Sounds, Soft. absent: Distended, Organom egaly, Pulsatile Mass, Rebound, Rigid, Tenderness - Rectal Exam Rectal Exam: Deferred - Exam Exam: NORMAL INSPECTION - Extremities Exam Extremities exam: Negative for: pedal edema - Back Exam Back exam: absent: CVA tenderness (L), CVA tenderness (R) - Neurological Exam Neurological exam: Alert, CN II-XII Intact, Oriented x3, Reflexes Normal - Psychiatric Exam Psychiatric exam: Normal Mood - Skin Skin Exam: Dry, Intact Results - Vital Signs Recent Vital Signs: Last Vital Signs Temp 97.5 F L 05/12/18 15:51 Pulse 68 05/12/18 16:21 Resp 20 05/12/18 15:51 BP 171/68 H 05/12/18 16:21 Pulse Ox 98 05/12/18 15:51 - Labs Labs: Laboratory Results - last 24 hr 05/11/18 05/12/18 05/12/18 21:25 06:13 10:45 POC Glucose (mg/dL) 148 H 166 H 278 H 05/12/18 16:14 POC Glucose (mg/dL) 177 H Assessment & Plan (1) Prostatitis Status: Acute (2) Urinary tract infection Status: Acute - Assessment and Plan (Free Text) Assessment: sepsis resolved- improving on IV rx Cont iv then PO rx for 21 days total with follow up
[2018-05-12 18:57] LABS: SQUAMOUS EPITHIAL 1 /hpf (0-5); URINE BACTERIA RARE (<OCC); URINE BILIRUBIN NEGATIVE (NEGATIVE); URINE BLOOD SMALL (NEGATIVE); URINE CLARITY CLEAR (Clear); URINE COLOR STRAW (YELLOW); URINE GLUCOSE (UA) NEG (Normal); URINE LEUKOCYTE ESTERASE NEG Leu/uL (Negative); URINE PROTEIN NEGATIVE (NEGATIVE); URINE UROBILINOGEN 0.2-1.0 mg/dL (0.2-1.0)
[2018-05-13] MEDS: Meropenem 1 GM in Sodium Chloride 0.9% 100 ML IVPB SCH ×4 (01:02→16:32)
[2018-05-13] MEDS: Insulin Lispro (humaLOG) 100 Units/ml Inj SC SCH ×4 (07:09→21:40)
[2018-05-13] MEDS: GlipiZIDE 2.5 mg SR Tab PO SCH (08:00)
[2018-05-13] MEDS: Enoxaparin 40 mg Syringe SC SCH (09:12)
--- NOTE | 2018-05-13 14:15 | CP.PCM.PN ---
Subjective - Date & Time of Evaluation Date of Evaluation: 05/13/18 Time of Evaluation: 08:00 - Subjective Subjective: PSA elevated will need eval / follow up cont IV antibiotics Objective - Vital Signs/Intake and Output Vital Signs (last 24 hours): Temp Pulse Resp BP Pulse Ox 97.9 F 70 20 144/64 98 05/13/18 08:18 05/13/18 09:12 05/13/18 08:18 05/13/18 09:12 05/13/18 08:18 - Medications Medications: Current Medications Acetaminophen (Tylenol 325mg Tab) 650 mg PO Q6 PRN PRN Reason: Fever >100.4 F Acetaminophen (Tylenol 325mg Tab) 650 mg PO Q6 PRN PRN Reason: for pain level 1-3 Dextrose (Dextrose 50% Inj) 0 ml IV STAT PRN; Protocol PRN Reason: Hypoglycemia Protocol Dextrose (Glutose 15) 0 gm PO ONCE PRN; Protocol PRN Reason: Hypoglycemia Protocol Docusate Sodium (Colace) 100 mg PO BID [facility] Last Admin: 05/13/18 09:12 Dose: 100 mg Enoxaparin Sodium (Lovenox) 40 mg SC DAILY [facility]; Protocol Last Admin: 05/13/18 09:12 Dose: 40 mg Finasteride (Proscar) 5 mg PO DAILY [facility] Last Admin: 05/13/18 09:13 Dose: 5 mg Glipizide (Glucotrol Xl) 2.5 mg PO BRK [facility] Last Admin: 05/13/18 08:00 Dose: 2.5 mg Glucagon (Glucagen Diagnostic Kit) 0 mg IM STAT PRN; Protocol PRN Reason: Hypoglycemia Protocol Meropenem 1 gm/ Sodium (Chloride) 100 mls @ 100 mls/hr IVPB Q8 [facility] Last Admin: 05/13/18 09:14 Dose: 100 mls/hr Insulin Human Lispro (Humalog) 0 units SC ACHS [facility]; Protocol Last Admin: 05/13/18 12:12 Dose: 5 units Metoprolol Tartrate (Lopressor) 25 mg PO BID [facility] Last Admin: 05/13/18 09:12 Dose: 25 mg Sitagliptin Phosphate (Januvia) 50 mg PO DAILY [facility] Last Admin: 05/13/18 09:13 Dose: 50 mg Tamsulosin HCl (Flomax) 0.8 mg PO DAILY [facility] Last Admin: 05/13/18 09:13 Dose: 0.8 mg Assessment and Plan (1) Prostatitis Status: Acute (2) Urinary tract infection Status: Acute
[2018-05-14] MEDS: Meropenem 1 GM in Sodium Chloride 0.9% 100 ML IVPB SCH ×3 (00:12→16:16)
[2018-05-14] MEDS: Insulin Lispro (humaLOG) 100 Units/ml Inj SC SCH ×4 (06:49→22:45)
[2018-05-14] MEDS: GlipiZIDE 2.5 mg SR Tab PO SCH (08:20)
[2018-05-14] MEDS: Enoxaparin 40 mg Syringe SC SCH (09:19)
[2018-05-15] MEDS: Meropenem 1 GM in Sodium Chloride 0.9% 100 ML IVPB SCH ×3 (00:52→16:15)
[2018-05-15] MEDS: Insulin Lispro (humaLOG) 100 Units/ml Inj SC SCH ×4 (07:02→21:49)
[2018-05-15] MEDS: Enoxaparin 40 mg Syringe SC SCH (08:38)
[2018-05-15] MEDS: GlipiZIDE 2.5 mg SR Tab PO SCH (08:39)
[2018-05-16] MEDS: Meropenem 1 GM in Sodium Chloride 0.9% 100 ML IVPB SCH ×3 (00:24→16:53)
[2018-05-16 06:24] LABS: BASO % 0.6 % (0.0-2.0); EOS # 0.4 K/uL (0.0-0.7); HEMOGLOBIN 12.5 g/dL (12.0-18.0); LYMPH # 2.9 K/uL (1.0-4.3); LYMPH % 37.1 % (20.0-40.0); MEAN CELL VOLUME 87.8 fl (80.0-94.0); MEAN CORPUSCULAR HEMOGLOBIN 29.1 pg (27.0-31.0); MEAN CORPUSCULAR HGB CONC 33.2 g/dL (33.0-37.0); MEAN PLATELET VOLUME 8.3 fl (7.2-11.7); MONO # 0.8 K/uL (0.0-0.8); MONO % 9.7 % (0.0-10.0); NEUT # 3.7 K/uL (1.8-7.0); NEUT % 47.6 % (50.0-75.0); NRBC % 0.1 % (0.0-0.0); RBC 4.31 Mil/uL (4.40-5.90); RED CELL DISTRIBUTION WIDTH 13.9 % (11.5-14.5); WHITE BLOOD COUNT 7.8 K/uL (4.8-10.8)
[2018-05-16] MEDS: Insulin Lispro (humaLOG) 100 Units/ml Inj SC SCH ×4 (07:01→21:58)
[2018-05-16 07:06] LABS: BLOOD UREA NITROGEN 23 mg/dl (9-20); CALCIUM 9.2 mg/dL (8.4-10.2); GFR NON-AFRICAN AMERICAN > 60
[2018-05-16] MEDS: Enoxaparin 40 mg Syringe SC SCH (08:09)
[2018-05-16] MEDS: GlipiZIDE 2.5 mg SR Tab PO SCH (08:10)
[2018-05-17] MEDS: Meropenem 1 GM in Sodium Chloride 0.9% 100 ML IVPB SCH ×3 (00:28→16:54)
[2018-05-17] MEDS: Insulin Lispro (humaLOG) 100 Units/ml Inj SC SCH ×4 (07:00→21:23)
[2018-05-17] MEDS: GlipiZIDE 2.5 mg SR Tab PO SCH (08:49)
[2018-05-17] MEDS: Enoxaparin 40 mg Syringe SC SCH (08:49)
--- NOTE | 2018-05-17 12:19 | CP.PCM.CON ---
History of Present Illness - History of Present Illness History of Present Illness: Podiatry consult note fro Dr. Mosqueda, 78 y/o male patient seen and evaluated in TCU for elongated, painful toenails X 10. Patient denies any other pedal complaints. Patient states he was admitted for a UTI. Patient is resting comfortably and in no acute distress. Patient states he normally cuts his own toenails at home. PMD: Qamar Dobson MD PMHx: HTN, HLD, NIDDM, and BPH SurgHx: Denies FHx: hx of Alzehimers in mother and liver problem in father (both passes away), HTN in family SHx: denies ETOH, smoking and illicit drug use Allergies: NKDA Meds: see med list Review of Systems - Review of Systems All systems: reviewed and no additional remarkable complaints except Review of Systems: As per HPI Past Patient History - Past Medical History & Family History Past Medical History?: Yes - Past Social History Smoking Status: Never Smoked - CARDIAC Hx Cardiac Disorders: Yes Hx Hypercholesterolemia: Yes Hx Hypertension: Yes - PULMONARY Hx Respiratory Disorders: No - NEUROLOGICAL Hx Neurological Disorder: No - HEENT Hx HEENT Problems: No - RENAL Hx Chronic Kidney Disease: No - ENDOCRINE/METABOLIC Hx Endocrine Disorders: Yes Hx Diabetes Mellitus Type 2: Yes - HEMATOLOGICAL/ONCOLOGICAL Hx AIDS: No Hx Human Immunodeficiency Virus (HIV): No - INTEGUMENTARY Hx Dermatological Problems: No - MUSCULOSKELETAL/RHEUMATOLOGICAL Hx Falls: No - GASTROINTESTINAL Hx Gastrointestinal Disorders: No - GENITOURINARY/GYNECOLOGICAL Hx Genitourinary Disorders: Yes Hx Prostate Problems: Yes - PSYCHIATRIC Hx Substance Use: No - SURGICAL HISTORY Hx Surgeries: No - ANESTHESIA Hx Anesthesia: No Hx Anesthesia Reactions: No Hx Malignant Hyperthermia: No Meds Allergies/Adverse Reactions: Allergies Allergy/AdvReac Type Severity Reaction Status Date / Time No Known Allergies Allergy Verified 05/08/18 13:46 - Medications Medications: Current Medications Acetaminophen (Tylenol 325mg Tab) 650 mg PO Q6 PRN PRN Reason: Fever >100.4 F Acetaminophen (Tylenol 325mg Tab) 650 mg PO Q6 PRN PRN Reason: for pain level 1-3 Dextrose (Dextrose 50% Inj) 0 ml IV STAT PRN; Protocol PRN Reason: Hypoglycemia Protocol Dextrose (Glutose 15) 0 gm PO ONCE PRN; Protocol PRN Reason: Hypoglycemia Protocol Docusate Sodium (Colace) 100 mg PO BID [facility] Last Admin: 05/17/18 08:50 Dose: 100 mg Enoxaparin Sodium (Lovenox) 40 mg SC DAILY [facility]; Protocol Last Admin: 05/17/18 08:49 Dose: 40 mg Finasteride (Proscar) 5 mg PO DAILY [facility] Last Admin: 05/17/18 08:50 Dose: 5 mg Glipizide (Glucotrol Xl) 2.5 mg PO BRK [facility] Last Admin: 05/17/18 08:49 Dose: 2.5 mg Glucagon (Glucagen Diagnostic Kit) 0 mg IM STAT PRN; Protocol PRN Reason: Hypoglycemia Protocol Meropenem 1 gm/ Sodium (Chloride) 100 mls @ 100 mls/hr IVPB Q8 [facility] Last Admin: 05/17/18 08:48 Dose: 100 mls/hr Insulin Human Lispro (Humalog) 0 units SC ACHS [facility]; Protocol Last Admin: 05/17/18 12:02 Dose: 6 units Metoprolol Tartrate (Lopressor) 25 mg PO BID [facility] Last Admin: 05/17/18 08:49 Dose: 25 mg Sitagliptin Phosphate (Januvia) 50 mg PO DAILY [facility] Last Admin: 05/17/18 08:49 Dose: 50 mg Tamsulosin HCl (Flomax) 0.8 mg PO DAILY [facility] Last Admin: 05/17/18 08:50 Dose: 0.8 mg Physical Exam - Constitutional Appears: Well, Non-toxic, No Acute Distress - Head Exam Head Exam: ATRAUMATIC, NORMOCEPHALIC - Extremities Exam Additional comments: Bilateral Lower Extremity VASC: DP and PT 2/4 bilaterally, no edema, no erythema, TG within normal limits, no varicosities, CFT less than 3 seconds X 10 ORTHO: no pain with any ranges of motion, MSK 5/5 DERM: elongated X 10, no dystrophy, no open lesions, no clinical signs of infection NEURO: grossly intact - Neurological Exam Neurological exam: Alert, Oriented x3 - Psychiatric Exam Psychiatric exam: Normal Affect, Normal Mood Results - Vital Signs Recent Vital Signs: Last Vital Signs Temp 97.4 F L 05/17/18 08:10 Pulse 92 H 05/17/18 08:49 Resp 20 05/17/18 08:10 BP 119/68 05/17/18 08:49 Pulse Ox 97 05/17/18 08:10 - Labs Result Diagrams: 05/16/18 05:30 05/16/18 05:30 Labs: Laboratory Results - last 24 hr 05/16/18 05/16/18 05/16/18 05:30 10:41 16:38 POC Glucose (mg/dL) 359 H 243 H Hemoglobin A1c 7.2 H 05/16/18 05/17/18 05/17/18 20:48 05:43 10:52 POC Glucose (mg/dL) 243 H 246 H 444 H* Hemoglobin A1c Assessment & Plan - Assessment and Plan (Free Text) Assessment: 78 y/o male patient seen and evaluated for elongated toenails Plan: Patient seen and evaluated Plan discussed with Dr. Mosqueda Chart labs and vitals were reviewed Patient toenails derided X 10, patient tolerated procedure well Patient stable at this time Thank you for the consult - Date & Time Date: 05/17/18 Time: 12:21
[2018-05-18] MEDS: Meropenem 1 GM in Sodium Chloride 0.9% 100 ML IVPB SCH ×3 (00:57→16:57)
[2018-05-18] MEDS: Insulin Lispro (humaLOG) 100 Units/ml Inj SC SCH ×4 (06:38→21:15)
[2018-05-18] MEDS: Enoxaparin 40 mg Syringe SC SCH (08:10)
[2018-05-18] MEDS: GlipiZIDE 2.5 mg SR Tab PO SCH (08:10)
--- NOTE | 2018-05-18 12:35 | CP.PCM.PN ---
Subjective - Date & Time of Evaluation Date of Evaluation: 05/18/18 Time of Evaluation: 09:00 - Subjective Subjective: awake alert no fever IV antibiotic in progress possible d/c on PO follow up with Objective - Vital Signs/Intake and Output Vital Signs (last 24 hours): Temp Pulse Resp BP Pulse Ox 97.6 F 74 20 145/72 98 05/18/18 08:00 05/18/18 08:10 05/18/18 08:00 05/18/18 08:10 05/18/18 08:00 - Medications Medications: Current Medications Acetaminophen (Tylenol 325mg Tab) 650 mg PO Q6 PRN PRN Reason: Fever >100.4 F Acetaminophen (Tylenol 325mg Tab) 650 mg PO Q6 PRN PRN Reason: for pain level 1-3 Dextrose (Dextrose 50% Inj) 0 ml IV STAT PRN; Protocol PRN Reason: Hypoglycemia Protocol Dextrose (Glutose 15) 0 gm PO ONCE PRN; Protocol PRN Reason: Hypoglycemia Protocol Docusate Sodium (Colace) 100 mg PO BID [facility] Last Admin: 05/18/18 08:09 Dose: 100 mg Enoxaparin Sodium (Lovenox) 40 mg SC DAILY [facility]; Protocol Last Admin: 05/18/18 08:10 Dose: 40 mg Finasteride (Proscar) 5 mg PO DAILY [facility] Last Admin: 05/18/18 08:10 Dose: 5 mg Glipizide (Glucotrol Xl) 2.5 mg PO BRK [facility] Last Admin: 05/18/18 08:10 Dose: 2.5 mg Glucagon (Glucagen Diagnostic Kit) 0 mg IM STAT PRN; Protocol PRN Reason: Hypoglycemia Protocol Meropenem 1 gm/ Sodium (Chloride) 100 mls @ 100 mls/hr IVPB Q8 [facility] Last Admin: 05/18/18 08:10 Dose: 100 mls/hr Insulin Human Lispro (Humalog) 0 units SC ACHS [facility]; Protocol Last Admin: 05/18/18 11:38 Dose: 4 units Metoprolol Tartrate (Lopressor) 25 mg PO BID [facility] Last Admin: 05/18/18 08:10 Dose: 25 mg Sitagliptin Phosphate (Januvia) 50 mg PO DAILY [facility] Last Admin: 05/18/18 08:11 Dose: 50 mg Tamsulosin HCl (Flomax) 0.8 mg PO DAILY [facility] Last Admin: 05/18/18 08:09 Dose: 0.8 mg - Labs Labs: 05/16/18 05:30 05/16/18 05:30 - Constitutional Appears: Non-toxic, Chronically Ill - Head Exam Head Exam: NORMOCEPHALIC - Eye Exam Eye Exam: absent: Scleral icterus - ENT Exam ENT Exam: Mucous Membranes Dry - Neck Exam Neck Exam: absent: Lymphadenopathy - Respiratory Exam Respiratory Exam: Decreased Breath Sounds - Cardiovascular Exam Cardiovascular Exam: REGULAR RHYTHM - GI/Abdominal Exam GI & Abdominal Exam: Distended, Soft - Rectal Exam Rectal Exam: Deferred - Exam Exam: NORMAL INSPECTION - Extremities Exam Extremities Exam: absent: Pedal Edema - Back Exam Back Exam: absent: CVA tenderness (L), CVA tenderness (R) - Neurological Exam Neurological Exam: Alert, Awake, Oriented x3 Assessment and Plan (1) Prostatitis Status: Acute (2) Urinary tract infection Status: Acute - Assessment and Plan (Free Text) Assessment: cont iv antibiotics follow up for prostatitis and elevated PSA
[2018-05-18 19:42] VITALS: PULSE 77
[2018-05-19] MEDS: Meropenem 1 GM in Sodium Chloride 0.9% 100 ML IVPB SCH (01:44)
[2018-05-19] MEDS: Insulin Lispro (humaLOG) 100 Units/ml Inj SC SCH ×2 (06:33→11:41)
[2018-05-19 08:31] VITALS: BP 144/73; TEMP 97.8; O2SAT 97
[2018-05-19] MEDS: Enoxaparin 40 mg Syringe SC SCH (08:45)
[2018-05-19] MEDS: GlipiZIDE 2.5 mg SR Tab PO SCH (08:46)
--- NOTE | 2018-05-19 11:03 | CP.PCM.DIS ---
Provider - Provider Date of Admission: 05/11/18 18:26 Attending physician: Ludmila Dunne MD Consults: 05/16/18 15:22 Infectious Disease Consult Routine Comment: Consulting Provider: Lenny Gasca Consulting Physician: Lenny Gasca Reason for Consult: UTI 05/16/18 15:23 Podiatry Consult Routine Comment: Consulting Provider: Ian Mosqueda Consulting Physician: Ian Mosqueda Reason for Consult: toe nail Time Spent in preparation of Discharge (in minutes): 25 Diagnosis - Discharge Diagnosis (1) Urinary tract infection Status: Acute Comment: urine culture grew Proteus mirabilis. completed 10 day course of IV antibiotics. to continue Cipro 500mg PO BID for another 5 days at home (2) HTN (hypertension) Status: Chronic Comment: BP stable. continue Metoprolol succinate 50mg PO daily (3) DM2 (diabetes mellitus, type 2) Status: Chronic Comment: BS relatively controlled. continue Glipizide and Januvia (4) BPH (benign prostatic hyperplasia) Status: Acute Comment: continue Finasteride and Tamsulosin Hospital Course - Lab Results Lab Results: Most Recent Lab Values WBC 7.8 K/uL (4.8-10.8) 05/16/18 05:30 RBC 4.31 Mil/uL (4.40-5.90) L 05/16/18 05:30 Hgb 12.5 g/dL (12.0-18.0) 05/16/18 05:30 Hct 37.8 % (35.0-51.0) 05/16/18 05:30 MCV 87.8 fl (80.0-94.0) 05/16/18 05:30 MCH 29.1 pg (27.0-31.0) 05/16/18 05:30 MCHC 33.2 g/dL (33.0-37.0) 05/16/18 05:30 RDW 13.9 % (11.5-14.5) 05/16/18 05:30 Plt Count 261 K/uL (130-400) D 05/16/18 05:30 MPV 8.3 fl (7.2-11.7) 05/16/18 05:30 Neut % (Auto) 47.6 % (50.0-75.0) L 05/16/18 05:30 Lymph % (Auto) 37.1 % (20.0-40.0) 05/16/18 05:30 [place] % (Auto) 9.7 % (0.0-10.0) 05/16/18 05:30 Eos % (Auto) 5.0 % (0.0-4.0) H 05/16/18 05:30 Baso % (Auto) 0.6 % (0.0-2.0) 05/16/18 05:30 Neut # (Auto) 3.7 K/uL (1.8-7.0) 05/16/18 05:30 Lymph # (Auto) 2.9 K/uL (1.0-4.3) 05/16/18 05:30 [place] # (Auto) 0.8 K/uL (0.0-0.8) 05/16/18 05:30 Eos # (Auto) 0.4 K/uL (0.0-0.7) 05/16/18 05:30 Baso # (Auto) 0.0 K/uL (0.0-0.2) 05/16/18 05:30 Sodium 137 mmol/l (132-148) 05/16/18 05:30 Potassium 4.4 MMOL/L (3.6-5.0) 05/16/18 05:30 Chloride 101 mmol/L (98-107) 05/16/18 05:30 Carbon Dioxide 26 mmol/L (22-30) 05/16/18 05:30 Anion Gap 14 (10-20) 05/16/18 05:30 BUN 23 mg/dl (9-20) H 05/16/18 05:30 Creatinine 0.9 mg/dl (0.8-1.5) 05/16/18 05:30 Est GFR ( Amer) > 60 05/16/18 05:30 Est GFR (Non-Af Amer) > 60 05/16/18 05:30 POC Glucose (mg/dL) 193 mg/dL (65-110) H 05/19/18 05:03 Random Glucose 248 mg/dL (75-110) H 05/16/18 05:30 Hemoglobin A1c 7.2 % (4.2-6.5) H 05/16/18 05:30 Calcium 9.2 mg/dL (8.4-10.2) 05/16/18 05:30 Prostate Specific Ag 15.2 ng/ML (0.00-4.0) H 05/13/18 05:50 Urine Color Straw (YELLOW) 05/12/18 18:52 Urine Clarity Clear (Clear) 05/12/18 18:52 Urine pH 6.0 (5.0-8.0) 05/12/18 18:52 Ur Specific [place] 1.008 (1.003-1.030) 05/12/18 18:52 Urine Protein Negative mg/dL (NEGATIVE) 05/12/18 18:52 Urine Glucose (UA) Neg mg/dL (Normal) 05/12/18 18:52 Urine Ketones Negative mg/dL (NEGATIVE) 05/12/18 18:52 Urine Blood Small (NEGATIVE) 05/12/18 18:52 Urine Nitrate Negative (NEGATIVE) 05/12/18 18:52 Urine Bilirubin Negative (NEGATIVE) 05/12/18 18:52 Urine Urobilinogen 0.2-1.0 mg/dL (0.2-1.0) 05/12/18 18:52 Ur Leukocyte Esterase Neg [place]/uL (Negative) 05/12/18 18:52 Urine RBC (Auto) 4 /hpf (0-3) H 05/12/18 18:52 Urine Microscopic WBC 2 /hpf (0-5) 05/12/18 18:52 Ur Squamous Epith Cells 1 /hpf (0-5) 05/12/18 18:52 Urine Bacteria Rare (<OCC) 05/12/18 18:52 - Hospital Course Hospital Course: 77 yo male with history of DM2, HTN, HLD and BPH admitted because of dysuria and chills. Urine grew Proteus mirabilis. He was put on IV Meropenem and was transferred to TCU for completion of IV antibiotics. Patient condition was improved and with the completion of IV antibiotic patient was discharged in stable condition. He will continue 5 days more of PO Cipro at home. Discharge Exam - Head Exam Head Exam: ATRAUMATIC, NORMOCEPHALIC - Eye Exam Eye Exam: absent: Scleral icterus - ENT Exam ENT Exam: Mucous Membranes Moist - Respiratory Exam Respiratory Exam: absent: Rales, Rhonchi, Wheezes, Respiratory Distress - Cardiovascular Exam Cardiovascular Exam: REGULAR RHYTHM, +S1, +S2 - GI/Abdominal Exam GI & Abdominal Exam: Soft. absent: Tenderness - Rectal Exam Rectal Exam: Deferred - Neurological Exam Neurological exam: Alert, Oriented x3 - Psychiatric Exam Psychiatric exam: Normal Affect - Skin Skin Exam: Dry, Intact Discharge Plan - Discharge Medications Prescriptions: Ciprofloxacin HCl [Cipro] 500 mg PO BID #10 tablet Finasteride [Proscar] 5 mg PO DAILY #30 tab - Follow Up Plan Condition: GOOD Disposition: HOME/ ROUTINE Instructions: Urinary Tract Infection, Adult (DC), Prostatitis (DC)
== END 2018-05-19 12:45 | disposition home or self-care (01) | DRG 872 ==
LOC: H.TCU 18:26
PROVIDERS: ADMIT Internal Medicine; ATTEND Internal Medicine
DX: A41.9 Sepsis, unspecified organism (principal); N39.0 Urinary tract infection, site not specified; N41.9 Inflammatory disease of prostate, unspecified; B96.4 Proteus (mirabilis) (morganii) as the cause of diseases classified elsewhere; I10 Essential (primary) hypertension; E78.5 Hyperlipidemia, unspecified; E78.00 Pure hypercholesterolemia, unspecified; E11.9 Type 2 diabetes mellitus without complications; N40.0 Benign prostatic hyperplasia without lower urinary tract symptoms